=== PATIENT | male | born 1960 | race Caucasian/White ===

== ENCOUNTER 2017-02-16 15:46 | Emergency (ER) | payer OTHER ==
[~2017-02-16 15:46] MED LIST: ADDERALL20 MG PO; ALBUTEROL HFA60 DOSE IN; BENAZEPRIL HCL20 MG PO; COMBIVENT RESPIMAT IN; DEPAKOTE SPRIN125 MG PO; DIVALPROEX SOD250 MG PO; GABAPENTIN600 MG PO; LIPITOR80 MG PO; PREDNISONE20 MG PO; SEROQUEL100 MG PO; VENLAFAXINE H37.5 M1 PO
--- NOTE | 2017-02-16 16:57 | DIAGNOSTIC IMAGING REPORT ---
PROCEDURE: CT ABDOMEN/PELVIS W/O CONTRAST INDICATION: Bilateral flank pain. TECHNIQUE: Noncontrast axial images were obtained of the entire abdomen and pelvis with sagittal and coronal reformations. COMPARISON: CT abdomen/pelvis 07/17/2015. FINDINGS: ABDOMEN: Nonobstructing 4 mm right and 1 mm left renal calculi. Normal ureters. No evidence of hydronephrosis. Lung base are clear. Heart size is normal. Liver, gallbladder, pancreas, spleen and adrenal glands are normal. Moderate atherosclerosis of the aorta. Mild diverticulosis of the transverse and descending colon. PELVIS: Normal appendix. Moderate sigmoid diverticulosis. Mildly enlarged prostate (4.7 cm) with dystrophic calcifications. No pelvic mass, inflammatory changes or free fluid. Small fat filled left inguinal no suspicious osseous lesions. IMPRESSION: 1. Bilateral nonobstructing renal calculi 2. Diverticulosis 3. Enlarged prostate 4. Results discussed with Azalea Gilbert. All CT scans at this facility use dose modulation, iterative reconstruction, and/or weight-based dosing when appropriate to reduce radiation dose to as low as reasonably achievable.
--- NOTE | 2017-02-16 17:02 | ED CLINICAL REPORT ---
Clinical Report - Physicians/Mid Levels [facility] [address] [place] [address] 02/16/2017 15:47 Patient: MAYRA EMNSAH Time Seen: 16:00; initial patient contact, initial documentation, patient care assumed. Arrived- By private vehicle. Historian- patient. HISTORY OF PRESENT ILLNESS Chief Complaint: FLANK PAIN. At its maximum, severity described as severe. When seen in the E.D., severity described as moderate. Modifying factors. Not worsened by anything. Not relieved by anything. It is described as "pain". It is described as located in the right flank, the right lower quadrant and left lower quadrant and the left flank and in the lower abdomen. It is described as radiating to the abdomen. This started today and is still present. It was abrupt in onset and has been constant. The patient has had nausea. No loss of appetite, vomiting or diarrhea. No additional abdominal pain. No recent travel. Similar symptoms previously: Frequently, milder. ( feels like his kidney stones). Recent medical care: Not recently seen/assessed. REVIEW OF SYSTEMS No constipation, black stools, hematemesis, difficulty with urination or pain with urination. No urinary frequency, bloody stools, fever, chest pain or difficulty breathing. All systems otherwise negative, except as recorded above. PAST HISTORY See nurses notes. PROBLEMS: Asthma. Lipoma. Lung Disease. Bronchitis. Hypercholesterolemia. Substance Abuse. Back Pain. Hyperlipidemia. Depression. Nephrolithiasis. Hypertension. Dental Pain. Back pain . --16:01 Moose Perez R.N. ADDITIONAL SURGERIES: Knee Surgery. Shoulder Surgery. --16:01 Moose Perez R.N. SOCIAL HISTORY Smoker- current status unknown (chews). Occasional alcohol use. History of occasional drug use: marijuana. No recent travel. Is a local resident. FAMILY HISTORY Negative. ADDITIONAL NOTES The nursing notes have been reviewed with agreement regarding the chief complaint, HPI, ROS, PMH and patient medications and allergies. PHYSICAL EXAM Vital Signs: 02/16/2017 15:59 BP: 145/89. HR: 91. RR: 20. O2 saturation: 95%. Temp: 98 F. Pain level now: 5/10. Have been reviewed as normal and appear to be correct. Appearance: Alert. Oriented X3. No acute distress. Eyes: Pupils equal, round and reactive to light. Eyes normal inspection. Neck: Normal inspection. Neck supple. CVS: Normal heart rate and rhythm. Heart sounds normal. Pulses normal. Respiratory: No respiratory distress. Breath sounds normal. Chest nontender. Abdomen: Soft and nontender. Bowel sounds normal. No organomegaly. No mass. Back: Normal inspection. Skin: Skin warm and dry. Normal skin color. No rash. Normal skin turgor. Extremities: Extremities exhibit normal ROM. No lower extremity edema. Neuro: Oriented X 3. No motor deficit. No sensory deficit. LABS, X-RAYS, AND EKG Abdominal CT: . IMPRESSION: 1. Bilateral nonobstructing renal calculi 2. Diverticulosis 3. Enlarged prostate 4. Results discussed with Azalea Gilbert. All CT scans at this facility use dose modulation, iterative reconstruction, and/or weight-based dosing when appropriate to reduce radiation dose to as low as reasonably achievable. Electronically Final signed by:Hari Reid MD 02/16/2017 4:56:41 PM. The study was interpreted by the radiologist and discussed with the radiologist. Interpretation time: 16:56. Laboratory Tests: UA-Culture if indicated: (JEANIE: 02/16/2017 17:05) ( MsgRcvd 02/16/2017 17:36) Final results Test Result Flag Units (Reference) URINE COLOR STRAW URINE APPEARANCE HAZY URINE GLUCOSE NEGATIVE (NEGATIVE) URINE BILIRUBIN NEGATIVE (NEGATIVE) URINE KETONE NEGATIVE (NEGATIVE) URINE SPECIFIC GRAVITY 1.010 (1.010-1.030) URINE PH 7.0 (5.0-8.0) URINE PROTEIN NEGATIVE (NEGATIVE) URINE UROBILINOGEN 0.2 EU/dL (0.2-1.0) URINE NITRITE NEGATIVE (NEGATIVE) URINE BLOOD NEGATIVE (NEGATIVE) URINE LEUK ESTERASE NEGATIVE (NEGATIVE) URINE RBC NONE SEEN rbc/hpf (0-1) URINE WBC NONE SEEN wbc/hpf (0-1) URINE EPITHELIAL CELLS NONE SEEN EPI/hpf (0-5) URINE BACTERIA NONE SEEN (NONE SEEN) URINE COMMENT CULT NOT INDICATED URINE CULTURES ARE SET-UP BASED ON THE FOLLOWING CRITERIA:POSITIVE NITRITEPOSITIVE LEUKOCYTE ESTERASEGREATER THAN 10 WHITE BLOOD CELLSMODERATE (2+) OR GREATER BACTERIA CBC w Diff: (JEANIE: 02/16/2017 16:18) ( MsgRcvd 02/16/2017 16:27) Final results Test Result Flag Units (Reference) WHITE BLOOD COUNT 5.7 K/uL (4.5-11.5) RED BLOOD COUNT 4.83 M/uL (4.50-5.90) HEMOGLOBIN 14.3 gm/dL (13.5-17.5) HEMATOCRIT 42.0 % (41.0-53.0) MEAN CELL VOLUME 87 fL (80-100) MEAN CORPUSCULAR HGB 30 pg (26-34) MEAN CORPUSCULAR HGB CONC 34 g/dL (31-37) RED CELL DISTRIBUTION WIDTH 13.8 % (11.6-14.8) PLATELET COUNT 233 K/uL (150-400) NEUTROPHIL % 64.9 % (50-75) LYMPH % 27.6 % (25-40) MONO % 6.1 % (3-14) EOSINOPHIL % 1.1 % (0-4) BASOPHIL % 0.3 % (0-2) CMP: (JEANIE: 02/16/2017 16:18) ( MsgRcvd 02/16/2017 16:46) Final results Test Result Flag Units (Reference) GLUCOSE 101 mg/dL (70-110) BUN 13 mg/dL (7-18) CREATININE 1.0 mg/dL (0.6-1.3) Estimated GFR >60 mL/min Estimated GFR- >60 mL/min Note: Persistent reduction over 3 months in eGFR<60 mL/min/1.73 m2 defines CKD. Patients with eGFR values>=60 mL/min/1.73 m2 may also have CKD if evidence ofpersistent proteinuria. Additional information may be foundat www.kidney.org. SODIUM 139 mmol/L (136-145) POTASSIUM 4.4 mmol/L (3.5-5.1) CHLORIDE 104 mmol/L (98-107) CARBON DIOXIDE 28 mmol/L (21-32) CALCIUM 8.4 L mg/dL (8.5-10.1) TOTAL PROTEIN 6.7 g/dL (6.4-8.2) ALBUMIN 3.5 g/dL (3.3-5.0) BILIRUBIN, TOTAL 0.4 mg/dL (0.0-1.0) ALKALINE PHOSPHATASE 78 U/L (46-116) AST (SGOT) 17 U/L (15-37) ALT (SGPT) 23 U/L (12-78) LIPASE 139 U/L (73-393) AMYLASE 44 U/L (25-115) . PROGRESS AND PROCEDURES Patient counseled in person regarding the patient's stable condition, test results and diagnosis. 1700. Differential Diagnosis: I considered gastritis, peptic ulcer disease, gastroesophageal reflux disease, acute appendicitis, diverticulitis, colon cancer, ulcerative colitis, Crohn's disease, biliary colic, cholecystitis, cholelithiasis, hepatitis, pancreatitis, common bile duct obstruction, cholangitis, hernia, urinary tract infection, prostatitis, ureterolithiasis and viral syndrome as a possible cause of abdominal pain in this patient. This is a partial list of diagnoses considered. Above considerations are based on history, physical exam, reassessment, laboratory data and other information. Differential diagnosis was discussed with patient. Disposition: Discharged home in good and improved condition (17:02). Condition: good and stable. CLINICAL IMPRESSION Ureterolithiasis (multiple stones) in the right kidney and left kidney with renal colic. No hydronephrosis, acute pyelonephritis, urinary tract infection or hematuria. INSTRUCTIONS Drink plenty of fluids for the next 24 hours until better. (strain all urine). Warnings: GENERAL WARNINGS: Return or contact your physician immediately if your condition worsens or changes unexpectedly, if not improving as expected, or if other problems arise. SPECIFICALLY, return if you develop pain in the abdomen or pelvis, fever, the inability to keep fluids down, blood in vomitus, blood in diarrhea, fainting or lightheadedness. Prescription Medications: Zofran 4 mg: Take 1 orally every six hours as needed for nausea/vomiting. Dispense ten (10). No refills. Substitution is permissible. [place] 5 mg / 325 mg tablets: take 1 to 2 orally every 6 hours as needed for pain. Dispense fifteen (15). No refills. Substitution is permissible. Toradol 10 mg tablets: Take 1 tablet orally every 6 hours as needed. Dispense fifteen (15). No refills. Substitution is permissible. Flomax 0.4 mg: take 1 orally every 24 hours. Dispense fifteen (15). No refills. Substitution is permissible. Follow-up: Follow up with your doctor in about two days even if well. Call for an appointment. Summary of care provided to patient. Understanding of the discharge instructions verbalized by patient. (Electronically signed by Azalea Gilbert A.R.N.P. 02/16/2017 18:20)
--- NOTE | 2017-02-16 17:02 | ED ORDER SUMMARY ---
..... Patient: MAYRA MENSAH OrderSheet [facility] VisitID: [id number] [place] [address] 56y, M Registration Date/Time: 02/16/2017 ORDER SHEET Weight: 81.6 kg (stated) Allergies: Tape GENERAL ORDERS: CT Abd/Pel wo Cont Urgent (16:17 02/16/2017 HBivens A.R.N.P.) (Ack 16:23 PWeiler ER Tech1) (17:01 RMarsden R.N.) CBC w Diff Urgent (16:17 02/16/2017 HBivens A.R.N.P.) (16:20 JSimbeck R.N.) CMP Urgent (16:17 02/16/2017 HBivens A.R.N.P.) (16:21 JSimbeck R.N.) UA-Culture if indicated Urgent (16:17 02/16/2017 HBivens A.R.N.P.) (Ack 16:23 PWeiler ER Tech1) (17:09 RMarsden R.N.) Amylase Urgent (16:17 02/16/2017 HBivens A.R.N.P.) (16:21 JSimbeck R.N.) Lipase Urgent (16:17 02/16/2017 HBivens A.R.N.P.) (16:21 JSimbeck R.N.) MEDICATION ORDERS: IV FLUIDS: IV NS : initial bolus 1000 mL (1000 mL/hr), then none - (NOW) (16:17 02/16/2017 HBivens A.R.N.P.) (16:26 JSimbeck R.N.) Toradol IV 30 mg (NOW) (16:17 02/16/2017 HBivens A.R.N.P.) (16:27 JSimbeck R.N.) IV Saline Lock (16:17 02/16/2017 HBivens A.R.N.P.) (16:21 JSimbeck R.N.) Dilaudid IV 1 mg (HIGH ALERT MEDICATION, NOW) (17:01 02/16/2017 HBivens A.R.N.P.) (Ack 17:02 Oliver Livingston) (17:09 Oliver Munson.) ORDER SHEET NOTES: [Electronically signed by Dona Calhoun R.N. (17:02/16/2017)] [Electronically signed by Azalea Gilbert (18:20 02/16/2017)] [Electronically locked/signed by Dona Calhoun R.N. (17:02/16/2017)]
--- NOTE | 2017-02-16 17:02 | ED ORDER SUMMARY ---
..... Patient: MAYRA MENSAH OrderSheet [facility] VisitID: [id number] [place] [address] 56y, M Registration Date/Time: 02/16/2017 ORDER SHEET Weight: 81.6 kg (stated) Allergies: Tape GENERAL ORDERS: CT Abd/Pel wo Cont Urgent (16:17 02/16/2017 HBivens A.R.N.P.) (Ack 16:23 PWeiler ER Tech1) (17:01 RMarsden R.N.) CBC w Diff Urgent (16:17 02/16/2017 HBivens A.R.N.P.) (16:20 JSimbeck R.N.) CMP Urgent (16:17 02/16/2017 HBivens A.R.N.P.) (16:21 JSimbeck R.N.) UA-Culture if indicated Urgent (16:17 02/16/2017 HBivens A.R.N.P.) (Ack 16:23 PWeiler ER Tech1) (17:09 RMarsden R.N.) Amylase Urgent (16:17 02/16/2017 HBivens A.R.N.P.) (16:21 JSimbeck R.N.) Lipase Urgent (16:17 02/16/2017 HBivens A.R.N.P.) (16:21 JSimbeck R.N.) MEDICATION ORDERS: IV FLUIDS: IV NS : initial bolus 1000 mL (1000 mL/hr), then none - (NOW) (16:17 02/16/2017 HBivens A.R.N.P.) (16:26 JSimbeck R.N.) Toradol IV 30 mg (NOW) (16:17 02/16/2017 HBivens A.R.N.P.) (16:27 JSimbeck R.N.) IV Saline Lock (16:17 02/16/2017 HBivens A.R.N.P.) (16:21 JSimbeck R.N.) Dilaudid IV 1 mg (HIGH ALERT MEDICATION, NOW) (17:01 02/16/2017 HBivens A.R.N.P.) (Ack 17:02 Oliver Livingston) (17:09 Oliver Munson.) ORDER SHEET NOTES: [Electronically signed by Dona Calhoun R.N. (17:02/16/2017)] [Electronically signed by Azalea Gilbert (18:20 02/16/2017)] [Electronically locked/signed by Dona Calhoun R.N. (17:02/16/2017)]
--- NOTE | 2017-02-16 17:02 | ED NURSING NOTES ---
Clinical Report - Nurses [facility] [place] [address] 02/16/2017 15:47 Patient: MYARA MENSAH TRIAGE Triage time 15:59. Acuity: LEVEL 3. Chief Complaint: ABDOMINAL PAIN and NAUSEA and (Feels like bilat kidney stones, onset this am.). 16:08 02/16/17. ALYCIA COMA SCORE: [place] Coma Scale: 15- eyes open spontaneously (4); best verbal response- oriented x 4 (5); best motor response- obeys commands (6). --16:08 Moose Perez R.N. 15:59 02/16/17. BP: 145/89 (regular adult cuff) taken on the left arm, while lying. HR: 91. RR: 20. O2 saturation: 95% on room air. Temp: 98 F (oral). Pain level now: 10. --16:08 Moose Perez R.N. Weight: 81.6 kg stated. Height/Length: 72 inches Per Patient. BMI: 24.4. --16:03 Moose Perez R.N. Medications Adderall Oral (Tablet 20 mg) 2 tablets, daily. Albuterol Sulfate HFA Inhalation. Atorvastatin Calcium Oral (Tablet 80 mg) 1 tablet, daily. Gabapentin Oral (Tablet 600 mg) 2 tablets, at bedtime as needed. SEROquel Oral (Tablet 300 mg) 1 tablet, daily. Venlafaxine HCl ER Oral (Tablet Extended Release 24 Hour 150 mg) 170 mg , daily. --16:01 Moose Perez R.N. Allergies Tape. --16:01 Moose Perez R.N. History Arrived by private vehicle. Historian: patient. The patient has had sharp, burning, constant abdominal pain (radiates from bilat flanks into lower abd). The pain is described as located in the lower abdomen. No constipation or fever. 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 SOCIAL HX: Smoker- current status unknown (chewing tobaco). Occasional alcohol use. History of drug use: marijuana. (3 times a day). ABUSE ASSESSMENT: No report of abuse. --16:08 Moose Perez R.N. PROBLEMS: Asthma. Lipoma. Lung Disease. Bronchitis. Hypercholesterolemia. Substance Abuse. Back Pain. Hyperlipidemia. Depression. Nephrolithiasis. Hypertension. Dental Pain. Back pain . --16:01 Moose Perez R.N. ADDITIONAL SURGERIES: Knee Surgery. Shoulder Surgery. --16:01 Moose Perez R.N. Interventions ID band on patient. To treatment room. --16:08 Moose Perez R.N. PHYSICAL ASSESSMENT 16:10 02/16/17. Ambulatory to room. GENERAL / NEURO / PSYCH: Alert. Oriented X 4. Appears in pain. HEENT: Mucous membranes are pink. RESPIRATORY: Respirations not labored. Breath sounds within normal limits. CVS: Capillary refill less than 2 seconds. GI / : Abdomen soft. Abdominal tenderness in the right lower quadrant and left lower quadrant (also bilat flank pain). Bowel sounds within normal limits. SKIN: Skin is warm and dry. --16:11 Moose Perez R.N. NURSING PROGRESS NOTES 16:09 02/16/17. Patient gowned. Head of bed elevated. Reassurance given. Two patient identifiers checked. Call light placed in reach. Bed placed in lowest position. Brakes of bed on. Patient ready for evaluation- chart flagged. --16:09 Moose Perez R.N. 16:18 02/16/2017 Site #1 started via IV in the left antecubital space with an 20g angiocath; one attempt. Blood drawn: rainbow set. Labeled in the presence of the patient and sent to the lab. Saline lock flushed with 10 mL saline. --16:21 Moose Perez R.N. 16:24 02/16/2017 Started bag #1 1000 mL IV Fluids IV NS (Saline); bolus of 1000 mL over 1 hour(s) via site #1. Allergies verified and confirmed 5 rights. IV patency established. IV site checked: no pain, redness, or swelling. IV flushed thoroughly pre- and post-medication administration. --16:26 Moose Perez R.N. 16:24 02/16/2017 Toradol IVP 30 mg given over 1 minute(s) via site #1. Allergies verified and confirmed 5 rights. IV patency established. IV site checked: no pain, redness, or swelling. IV flushed thoroughly pre- and post-medication administration. IVP given by RN. --16:27 Moose Perez R.N. 17:05 02/16/2017 Dilaudid (HYDROmorphone HCl PF) IVP 1 mg given over 2 minute(s) via site #1. Sedative warning given to the patient. IV patency established. IV site checked: no pain, redness, or swelling. IV flushed thoroughly pre- and post-medication administration. IVP given by RN. --17:09 Dona Calhoun R.N. DISPOSITION / DISCHARGE 17:11 02/16/17. --17:11 Dona Calhoun R.N. 17:09 02/16/17. BP: 153/101. HR: 84. RR: 16. O2 saturation: 97%. Temp: 98.1 F. Pain level now: 05/29. --17:11 Dona Calhoun R.N. 17:21 02/16/17. No learning barriers present. Discharge instructions provided and reviewed with the patient. Reviewed warnings. Reviewed medication(s). Treatments reviewed. Reviewed diet. Patient verbalized understanding. Written instructions provided in Faroese. The patient was discharged by the nurse practitioner. He was discharged home and accompanied by consulting application engineer. He left the Emergency Department ambulatory and via private vehicle. Sheet Metal Journeyman driving. --17:21 Dona Calhoun R.N. Locked/Released at 02/16/2017 17:27 by Dona Calhoun R.N.
--- NOTE | 2017-02-16 17:02 | ED NURSING NOTES ---
Clinical Report - Nurses [facility] [address] [address] 02/16/2017 15:47 Patient: MAYRA MENSAH TRIAGE Triage time 15:59. Acuity: LEVEL 3. Chief Complaint: ABDOMINAL PAIN and NAUSEA and (Feels like bilat kidney stones, onset this am.). 16:08 02/16/17. ALYCIA COMA SCORE: [place] Coma Scale: 15- eyes open spontaneously (4); best verbal response- oriented x 4 (5); best motor response- obeys commands (6). --16:08 Moose Perez R.N. 15:59 02/16/17. BP: 145/89 (regular adult cuff) taken on the left arm, while lying. HR: 91. RR: 20. O2 saturation: 95% on room air. Temp: 98 F (oral). Pain level now: 10. --16:08 Moose Perez R.N. Weight: 81.6 kg stated. Height/Length: 72 inches Per Patient. BMI: 24.4. --16:03 Moose Perez R.N. Medications Adderall Oral (Tablet 20 mg) 2 tablets, daily. Albuterol Sulfate HFA Inhalation. Atorvastatin Calcium Oral (Tablet 80 mg) 1 tablet, daily. Gabapentin Oral (Tablet 600 mg) 2 tablets, at bedtime as needed. SEROquel Oral (Tablet 300 mg) 1 tablet, daily. Venlafaxine HCl ER Oral (Tablet Extended Release 24 Hour 150 mg) 170 mg , daily. --16:01 Moose Perez R.N. Allergies Tape. --16:01 Moose Perez R.N. History Arrived by private vehicle. Historian: patient. The patient has had sharp, burning, constant abdominal pain (radiates from bilat flanks into lower abd). The pain is described as located in the lower abdomen. No constipation or fever. 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 SOCIAL HX: Smoker- current status unknown (chewing tobaco). Occasional alcohol use. History of drug use: marijuana. (3 times a day). ABUSE ASSESSMENT: No report of abuse. --16:08 Moose Perez R.N. PROBLEMS: Asthma. Lipoma. Lung Disease. Bronchitis. Hypercholesterolemia. Substance Abuse. Back Pain. Hyperlipidemia. Depression. Nephrolithiasis. Hypertension. Dental Pain. Back pain . --16:01 Moose Perez R.N. ADDITIONAL SURGERIES: Knee Surgery. Shoulder Surgery. --16:01 Moose Perez R.N. Interventions ID band on patient. To treatment room. --16:08 Moose Perez R.N. PHYSICAL ASSESSMENT 16:10 02/16/17. Ambulatory to room. GENERAL / NEURO / PSYCH: Alert. Oriented X 4. Appears in pain. HEENT: Mucous membranes are pink. RESPIRATORY: Respirations not labored. Breath sounds within normal limits. CVS: Capillary refill less than 2 seconds. GI / : Abdomen soft. Abdominal tenderness in the right lower quadrant and left lower quadrant (also bilat flank pain). Bowel sounds within normal limits. SKIN: Skin is warm and dry. --16:11 Moose Perez R.N. NURSING PROGRESS NOTES 16:09 02/16/17. Patient gowned. Head of bed elevated. Reassurance given. Two patient identifiers checked. Call light placed in reach. Bed placed in lowest position. Brakes of bed on. Patient ready for evaluation- chart flagged. --16:09 Moose Perez R.N. 16:18 02/16/2017 Site #1 started via IV in the left antecubital space with an 20g angiocath; one attempt. Blood drawn: rainbow set. Labeled in the presence of the patient and sent to the lab. Saline lock flushed with 10 mL saline. --16:21 Moose Perez R.N. 16:24 02/16/2017 Started bag #1 1000 mL IV Fluids IV NS (Saline); bolus of 1000 mL over 1 hour(s) via site #1. Allergies verified and confirmed 5 rights. IV patency established. IV site checked: no pain, redness, or swelling. IV flushed thoroughly pre- and post-medication administration. --16:26 Moose Perez R.N. 16:24 02/16/2017 Toradol IVP 30 mg given over 1 minute(s) via site #1. Allergies verified and confirmed 5 rights. IV patency established. IV site checked: no pain, redness, or swelling. IV flushed thoroughly pre- and post-medication administration. IVP given by RN. --16:27 Moose Perez R.N. 17:05 02/16/2017 Dilaudid (HYDROmorphone HCl PF) IVP 1 mg given over 2 minute(s) via site #1. Sedative warning given to the patient. IV patency established. IV site checked: no pain, redness, or swelling. IV flushed thoroughly pre- and post-medication administration. IVP given by RN. --17:09 Dona Calhoun R.N. DISPOSITION / DISCHARGE 17:11 02/16/17. --17:11 Dona Calhoun R.N. 17:09 02/16/17. BP: 153/101. HR: 84. RR: 16. O2 saturation: 97%. Temp: 98.1 F. Pain level now: 05/29. --17:11 Dona Calhoun R.N. 17:21 02/16/17. No learning barriers present. Discharge instructions provided and reviewed with the patient. Reviewed warnings. Reviewed medication(s). Treatments reviewed. Reviewed diet. Patient verbalized understanding. Written instructions provided in Cambodian. The patient was discharged by the nurse practitioner. He was discharged home and accompanied by flame burner. He left the Emergency Department ambulatory and via private vehicle. Exhibit Designer driving. --17:21 Dona Calhoun R.N. Locked/Released at 02/16/2017 17:27 by Dona Calhoun R.N.
--- NOTE | 2017-02-16 18:21 | ED MAR SUMMARY ---
..... Medication Administration Record [facility] [address] [place] [address] Patient: MAYRA MENSAH Visit ID: [id number] 56y, M Weight: 81.6 kg Height/Length: 72 in BMI: 24.4 ALLERGIES: Tape Start 16:24 02/16/2017 Moose Perez R.N. Medication Administered: IV NS (SALINE), Dose: IV Fluids, Bolus: 1000 mL over 1 hour(s), Dispensed: 1000 mL bag, Site: #1 left AC. Medication Ordered: IV NS : initial bolus 1000 mL (1000 mL/hr), then none - (NOW). Given 16:02/16/2017 Moose Perez R.N. Medication Administered: TORADOL [IVP], Dose: 30 mg IVP over 1 minute(s), Site: #1 left AC. Medication Ordered: Toradol IV 30 mg (NOW). Given 17:05 02/16/2017 Dona Calhoun R.N. Medication Administered: DILAUDID [IVP] (HYDROMORPHONE HCL PF), Dose: 1 mg IVP over 2 minute(s), Site: #1 left AC. Medication Ordered: Dilaudid IV 1 mg (HIGH ALERT MEDICATION, NOW).
--- NOTE | 2017-02-16 18:21 | ED MED RECONCILIATION SUMMARY ---
Patient: MAYRA MENSAH Medication Reconciliation Report [facility] VisitID: [id number] [place] [address] 56y, M Registration Date/Time: 02/16/2017 Weight: 81.6 kg Height/Length: 72 in. BMI: 24.4 ALLERGIES: Tape The patient's Home Medications are listed below: THE FOLLOWING MEDICATIONS NEED TO BE RECONCILED: Adderall Oral (20 mg) 2 tablets, daily Albuterol Sulfate HFA Inhalation Atorvastatin Calcium Oral (80 mg) 1 tablet, daily Gabapentin Oral (600 mg) 2 tablets, at bedtime SEROquel Oral (300 mg) 1 tablet, daily Venlafaxine HCl ER Oral (150 mg) 170 mg , daily The source(s) of the original Home Medication information: Not obtained. The following Medications were given to the patient in the Emergency Department: IV NS IV Fluids bolus 1000 mL over 1 hour(s), administered: 02/16/2017 4:24:00 PM Toradol [IVP] IVP 30 mg, administered: 02/16/2017 4:24:00 PM Dilaudid [IVP] IVP 1 mg, administered: 02/16/2017 5:05:00 PM The following Medications were prescribed to the patient: Zofran 4 mg: Take 1 orally every six hours as needed for nausea/vomiting. Dispense ten (10). No refills. Substitution is permissible. -- Azalea Gilbert, A.R.N.P. [place] 5 mg / 325 mg tablets: take 1 to 2 orally every 6 hours as needed for pain. Dispense fifteen (15). No refills. Substitution is permissible. -- Azalea Gilbert, A.R.N.P. Toradol 10 mg tablets: Take 1 tablet orally every 6 hours as needed. Dispense fifteen (15). No refills. Substitution is permissible. -- Azalea Gilbert, A.R.N.P. Flomax 0.4 mg: take 1 orally every 24 hours. Dispense fifteen (15). No refills. Substitution is permissible. -- Azalea Gilbert, A.R.N.P.
--- NOTE | 2017-02-16 18:21 | ED MAR SUMMARY ---
..... Medication Administration Record [facility] [address] [place] [place] [address] Patient: MAYRA MENSAH Visit ID: [id number] 56y, M Weight: 81.6 kg Height/Length: 72 in BMI: 24.4 ALLERGIES: Tape Start 16:24 02/16/2017 Moose Perez R.N. Medication Administered: IV NS (SALINE), Dose: IV Fluids, Bolus: 1000 mL over 1 hour(s), Dispensed: 1000 mL bag, Site: #1 left AC. Medication Ordered: IV NS : initial bolus 1000 mL (1000 mL/hr), then none - (NOW). Given 16:02/16/2017 Moose Perez R.N. Medication Administered: TORADOL [IVP], Dose: 30 mg IVP over 1 minute(s), Site: #1 left AC. Medication Ordered: Toradol IV 30 mg (NOW). Given 17:05 02/16/2017 Dona Calhoun R.N. Medication Administered: DILAUDID [IVP] (HYDROMORPHONE HCL PF), Dose: 1 mg IVP over 2 minute(s), Site: #1 left AC. Medication Ordered: Dilaudid IV 1 mg (HIGH ALERT MEDICATION, NOW).
--- NOTE | 2017-02-16 18:21 | ED MED RECONCILIATION SUMMARY ---
Patient: MAYRA MENSAH Medication Reconciliation Report [facility] VisitID: [id number] [place] [address] 56y, M Registration Date/Time: 02/16/2017 Weight: 81.6 kg Height/Length: 72 in. BMI: 24.4 ALLERGIES: Tape The patient's Home Medications are listed below: THE FOLLOWING MEDICATIONS NEED TO BE RECONCILED: Adderall Oral (20 mg) 2 tablets, daily Albuterol Sulfate HFA Inhalation Atorvastatin Calcium Oral (80 mg) 1 tablet, daily Gabapentin Oral (600 mg) 2 tablets, at bedtime SEROquel Oral (300 mg) 1 tablet, daily Venlafaxine HCl ER Oral (150 mg) 170 mg , daily The source(s) of the original Home Medication information: Not obtained. The following Medications were given to the patient in the Emergency Department: IV NS IV Fluids bolus 1000 mL over 1 hour(s), administered: 02/16/2017 4:24:00 PM Toradol [IVP] IVP 30 mg, administered: 02/16/2017 4:24:00 PM Dilaudid [IVP] IVP 1 mg, administered: 02/16/2017 5:05:00 PM The following Medications were prescribed to the patient: Zofran 4 mg: Take 1 orally every six hours as needed for nausea/vomiting. Dispense ten (10). No refills. Substitution is permissible. -- Azalea Gilbert, A.R.N.P. [place] 5 mg / 325 mg tablets: take 1 to 2 orally every 6 hours as needed for pain. Dispense fifteen (15). No refills. Substitution is permissible. -- Azalea Gilbert, A.R.N.P. Toradol 10 mg tablets: Take 1 tablet orally every 6 hours as needed. Dispense fifteen (15). No refills. Substitution is permissible. -- Azalea Gilbert, A.R.N.P. Flomax 0.4 mg: take 1 orally every 24 hours. Dispense fifteen (15). No refills. Substitution is permissible. -- Azalea Gilbert, A.R.N.P.
--- NOTE | 2017-02-16 18:21 | ED DISCHARGE INSTRUCTIONS ---
Patient: MAYRA MENSAH General Instructions [facility] VisitID: [id number] [place] [address] 56y, M Registration Date/Time: 02/16/2017 Ureterolithiasis (multiple stones) in the right kidney and left kidney with renal colic. No hydronephrosis, acute pyelonephritis, urinary tract infection or hematuria. INSTRUCTIONS Drink plenty of fluids for the next 24 hours until better. (strain all urine). Warnings: GENERAL WARNINGS: Return or contact your physician immediately if your condition worsens or changes unexpectedly, if not improving as expected, or if other problems arise. SPECIFICALLY, return if you develop pain in the abdomen or pelvis, fever, the inability to keep fluids down, blood in vomitus, blood in diarrhea, fainting or lightheadedness. Prescription Medications: Zofran 4 mg: Take 1 orally every six hours as needed for nausea/vomiting. Dispense ten (10). No refills. Substitution is permissible. [place] 5 mg / 325 mg tablets: take 1 to 2 orally every 6 hours as needed for pain. Dispense fifteen (15). No refills. Substitution is permissible. Toradol 10 mg tablets: Take 1 tablet orally every 6 hours as needed. Dispense fifteen (15). No refills. Substitution is permissible. Flomax 0.4 mg: take 1 orally every 24 hours. Dispense fifteen (15). No refills. Substitution is permissible. Follow-up: Follow up with your doctor in about two days even if well. Call for an appointment. Summary of care provided to patient. Understanding of the discharge instructions verbalized by patient. ADDITIONAL INFORMATION Kidney Stone (W/ Colic) The sharp cramping pain and nausea/vomiting that you have is due to a small stone which has formed in the kidney and is now passing down a narrow tube (ureter) on its way to your bladder. Once it reaches your bladder, the pain will stop. The stone may pass in your urine stream in one piece. [The size may be 1/16" to 1/4" (1-6mm)]. Or, the stone may also break up into xin fragments which you may not even notice. Once you have had a kidney stone, you are at risk for developing another one in the future. Home Care: Drink plenty of fluids (at least 8 to 10 glasses of water a day). Most stones will pass on their own, but may take from a few hours to a few days. Sometimes the stone is too large to pass by itself and special methods will have to be used to remove the stone. Each time you urinate, do so in a jar. Pour the urine from the jar through the strainer and into the toilet. Continue doing this until 24 hours after your pain stops. By then, if there was a kidney stone, it should pass from your bladder. Some stones dissolve into sand-like particles and pass right through the strainer. In that case, you wont ever see a stone. Save any stone that you find in the strainer and bring it to your doctor for analysis. It may be possible to prevent certain types of stones from forming. Therefore, it is important to know what kind of stone you have. Try to stay as active as possible since this will help the stone pass. Do not stay in bed unless your pain prevents you from getting up. You may notice a red, pink or brown color to your urine. This is normal while passing a kidney stone. Follow Up with your doctor or return to this facility if the pain lasts more than 48 hours. Get Prompt Medical Attention if any of the following occur: Pain that is not controlled by the medicine given Repeated vomiting or unable to keep down fluids Weakness, dizziness or fainting Fever of 100.4F (38C) or higher, or as directed by your healthcare provider Passage of solid red or brown urine (can't see through it) or urine with lots of blood clots Unable to pass urine for 8 hours and increasing bladder pressure Ondansetron Oral disintegrating tablet What is this medicine? ONDANSETRON (on JANINE se lenore) is used to treat nausea and vomiting caused by chemotherapy. It is also used to prevent or treat nausea and vomiting after surgery. How should I use this medicine? These tablets are made to dissolve in the mouth. Do not try to push the tablet through the foil backing. With dry hands, peel away the foil backing and gently remove the tablet. Place the tablet in the mouth and allow it to dissolve, then swallow. While you may take these tablets with water, it is not necessary to do so. Talk to your hoop punch operator helper regarding the use of this medicine in children. Special care may be needed. What side effects may I notice from receiving this medicine? Side effects that you should report to your doctor or health acute care occupational therapist as soon as possible: allergic reactions like skin rash, itching or hives, swelling of the face, lips, or tongue breathing problems dizziness fast or irregular heartbeat feeling faint or lightheaded, falls fever and chills swelling of the hands and feet tightness in the chest Side effects that usually do not require medical attention (report to your doctor or health acute care occupational therapist if they continue or are bothersome): constipation or diarrhea headache What may interact with this medicine? Do not take this medicine with any of the following medications: -apomorphine -cisapride -dofetilide -dronedarone -pimozide -thioridazine -ziprasidone This medicine may also interact with the following medications: -carbamazepine -phenytoin -rifampicin -tramadol -other medicines that prolong the QT interval (cause an abnormal heart rhythm) What if I miss a dose? If you miss a dose, take it as soon as you can. If it is almost time for your next dose, take only that dose. Do not take double or extra doses. Where should I keep my medicine? Keep out of the reach of children. Store between 2 and 30 degrees C (36 and 86 degrees F). Throw away any unused medicine after the expiration date. What should I tell my health care provider before I take this medicine? They need to know if you have any of these conditions: heart disease history of irregular heartbeat liver disease low levels of magnesium or potassium in the blood an unusual or allergic reaction to ondansetron, granisetron, other medicines, foods, dyes, or preservatives or trying to get breast-feeding What should I watch for while using this medicine? Check with your doctor or health acute care occupational therapist as soon as you can if you have any sign of an allergic reaction. Hydrocodone Bitartrate, Acetaminophen Oral tablet What is this medicine? ACETAMINOPHEN; HYDROCODONE (a set a JERAMIE srini fen; joellen droe KOE done) is a pain reliever. It is used to treat mild to moderate pain. How should I use this medicine? Take this medicine by mouth. Swallow it with a full glass of water. Follow the directions on the prescription label. If the medicine upsets your stomach, take the medicine with food or milk. Do not take more than you are told to take. Talk to your hoop punch operator helper regarding the use of this medicine in children. This medicine is not approved for use in children. What side effects may I notice from receiving this medicine? Side effects that you should report to your doctor or health acute care occupational therapist as soon as possible: allergic reactions like skin rash, itching or hives, swelling of the face, lips, or tongue breathing problems confusion feeling faint or lightheaded, falls stomach pain yellowing of the eyes or skin Side effects that usually do not require medical attention (report to your doctor or health acute care occupational therapist if they continue or are bothersome): nausea, vomiting stomach upset What may interact with this medicine? alcohol antihistamines isoniazid medicines for depression, anxiety, or psychotic disturbances medicines for sleep muscle relaxants naltrexone narcotic medicines (opiates) for pain phenobarbital ritonavir tramadol What if I miss a dose? If you miss a dose, take it as soon as you can. If it is almost time for your next dose, take only that dose. Do not take double or extra doses. Where should I keep my medicine? Keep out of the reach of children. This medicine can be abused. Keep your medicine in a safe place to protect it from theft. Do not share this medicine with anyone. Selling or giving away this medicine is dangerous and against the law. Store at room temperature between 15 and 30 degrees C (59 and 86 degrees F). Protect from light. Keep container tightly closed. Throw away any unused medicine after the expiration date. Discard unused medicine and used packaging carefully. Pets and children can be harmed if they find used or lost packages. What should I tell my health care provider before I take this medicine? They need to know if you have any of these conditions: brain tumor Crohn's disease, inflammatory bowel disease, or ulcerative colitis drink more than 3 alcohol-containing drinks per day drug abuse or addiction head injury heart or circulation problems kidney disease or problems going to the bathroom liver disease lung disease, asthma, or breathing problems an unusual or allergic reaction to acetaminophen, hydrocodone, other opioid analgesics, other medicines, foods, dyes, or preservatives or trying to get breast-feeding What should I watch for while using this medicine? Tell your doctor or health acute care occupational therapist if your pain does not go away, if it gets worse, or if you have new or a different type of pain. You may develop tolerance to the medicine. Tolerance means that you will need a higher dose of the medicine for pain relief. Tolerance is normal and is expected if you take the medicine for a long time. Do not suddenly stop taking your medicine because you may develop a severe reaction. Your body becomes used to the medicine. This does NOT mean you are addicted. Addiction is a behavior related to getting and using a drug for a non-medical reason. If you have pain, you have a medical reason to take pain medicine. Your doctor will tell you how much medicine to take. If your doctor wants you to stop the medicine, the dose will be slowly lowered over time to avoid any side effects. You may get drowsy or dizzy when you first start taking the medicine or change doses. Do not drive, use machinery, or do anything that may be dangerous until you know how the medicine affects you. Stand or sit up slowly. There are different types of narcotic medicines (opiates) for pain. If you take more than one type at the same time, you may have more side effects. Give your health care provider a list of all medicines you use. Your doctor will tell you how much medicine to take. Do not take more medicine than directed. Call emergency for help if you have problems breathing. The medicine will cause constipation. Try to have a bowel movement at least every 2 to 3 days. If you do not have a bowel movement for 3 days, call your doctor or health acute care occupational therapist. Too much acetaminophen can be very dangerous. Do not take Tylenol (acetaminophen) or medicines that contain acetaminophen with this medicine. Many non-prescription medicines contain acetaminophen. Always read the labels carefully. Ketorolac Tromethamine Oral tablet What is this medicine? KETOROLAC (christina toe ROLE ak) is a non-steroidal anti-inflammatory drug (NSAID). It is used for a short while to treat moderate to severe pain, including pain after surgery. It should not be used for more than 5 days. How should I use this medicine? Take this medicine by mouth with a full glass of water. Follow the directions on the prescription label. Take your medicine at regular intervals. Do not take your medicine more often than directed. Do not take more than the recommended dose. A special MedGuide will be given to you by the pharmacist with each prescription and refill. Be sure to read this information carefully each time. Talk to your hoop punch operator helper regarding the use of this medicine in children. While this drug may be prescribed for children as young as 16 years of age for selected conditions, precautions do apply. Patients over 65 years old may have a stronger reaction and need a smaller dose. What side effects may I notice from receiving this medicine? Side effects that you should report to your doctor or health acute care occupational therapist as soon as possible: allergic reactions like skin rash, itching or hives, swelling of the face, lips, or tongue black or tarry stools breathing problems changes in vision chest pain high blood pressure nausea or vomiting redness, blistering, peeling or loosening of the skin, including inside the mouth severe abdominal pain slurred speech or weakness on one side of the body unexplained weight gain or swelling unusual bleeding or bruising unusually weak or tired yellowing of eyes or skin Side effects that usually do not require medical attention (report to your doctor or health acute care occupational therapist if they continue or are bothersome): diarrhea dizziness headache heartburn What may interact with this medicine? Do not take this medicine with any of the following medications: aspirin and aspirin-like medicines cidofovir methotrexate NSAIDs, medicines for pain and inflammation, like ibuprofen or naproxen pemetrexed probenecid This medicine may also interact with the following medications: alcohol alendronate alprazolam carbamazepine cyclosporine diuretics flavocoxid fluoxetine ginkgo lithium medicines for high blood pressure like enalapril medicines that affect platelets like pentoxifylline medicines that treat or prevent blood clots like heparin, warfarin muscle relaxants phenytoin steroid medicines like prednisone or cortisone thiothixene What if I miss a dose? If you miss a dose, take it as soon as you can. If it is almost time for your next dose, take only that dose. Do not take double or extra doses. Where should I keep my medicine? Keep out of the reach of children. Store at room temperature between 20 and 25 degrees C (68 and 77 degrees F). Throw away any unused medicine after the expiration date. What should I tell my health care provider before I take this medicine? They need to know if you have any of these conditions: asthma bleeding problems like hemophilia cigarette smoker drink more than 3 alcohol containing drinks a day heart disease or circulation problems such as heart failure or leg edema (fluid retention) high blood pressure kidney disease liver disease stomach bleeding or ulcers an unusual or allergic reaction to ketorolac, aspirin, other NSAIDs, other medicines, foods, dyes, or preservatives or trying to get breast-feeding What should I watch for while using this medicine? Tell your doctor or health acute care occupational therapist if your pain does not get better. Talk to your doctor before taking another medicine for pain. Do not treat yourself. This medicine does not prevent heart attack or stroke. In fact, this medicine may increase the chance of a heart attack or stroke. The chance may increase with longer use of this medicine and in people who have heart disease. If you take aspirin to prevent heart attack or stroke, talk with your doctor or health acute care occupational therapist. Do not take medicines such as ibuprofen and naproxen with this medicine. Side effects such as stomach upset, nausea, or ulcers may be more likely to occur. Many medicines available without a prescription should not be taken with this medicine. This medicine can cause ulcers and bleeding in the stomach and intestines at any time during treatment. Do not smoke cigarettes or drink alcohol. These increase irritation to your stomach and can make it more susceptible to damage from this medicine. Ulcers and bleeding can happen without warning symptoms and can cause . You may get drowsy or dizzy. Do not drive, use machinery, or do anything that needs mental alertness until you know how this medicine affects you. Do not stand or sit up quickly, especially if you are an older patient. This reduces the risk of dizzy or fainting spells. This medicine can cause you to bleed more easily. Try to avoid damage to your teeth and gums when you brush or floss your teeth. You have been given the following additional information: Kidney Stone W/ Colic Ondansetron Oral disintegrating tablet Hydrocodone Bitartrate, Acetaminophen Oral tablet Ketorolac Tromethamine Oral tablet (Electronically signed by Azalea Gilbert A.R.N.P. 02/16/2017 18:20)
== END 2017-02-16 17:21 | disposition home or self-care (01) ==
LOC: ED SRH 15:46
DX: N20.2 Calculus of kidney with calculus of ureter (principal); I10 Essential (primary) hypertension; J45.909 Unspecified asthma, uncomplicated; F17.229 Nicotine dependence, chewing tobacco, with unspecified nicotine-induced disorders; Z79.899 Other long term (current) drug therapy; Z91.09 Other allergy status, other than to drugs and biological substances
CPT/HCPCS: 90004; 90100; 92235; 92530; 95059

== ENCOUNTER 2017-02-19 16:10 | Emergency (ER) | payer OTHER ==
--- NOTE | 2017-02-19 17:12 | ED ORDER SUMMARY ---
..... Patient: MAYRA MENSAH OrderSheet [facility] VisitID: [id number] [place] [address] 56y, M Registration Date/Time: 02/19/2017 ORDER SHEET Weight: 81.6 kg (stated) Allergies: Tape, No Known Drug Allergy GENERAL ORDERS: UA-Culture if indicated Urgent (16:34 02/19/2017 DDean R.N. per protocol) ([facility] 16:36 Mica) (16:49 DDean R.N.) MEDICATION ORDERS: Hydrocodone-APAP PO 10/650 mg (NOW, HIGH ALERT MEDICATION) (17:00 02/19/2017 Eri Dennis) (19:14 DDean R.N.) IV FLUIDS: ORDER SHEET NOTES: [Electronically signed by Nohemi Mcqueen P.A.-C (17:33 02/19/2017)] [Electronically signed by Jazmin Sahni R.N. (19:15 02/19/2017)] [Electronically locked/signed by Jazmin Sahni R.N. (19:15 02/19/2017)]
--- NOTE | 2017-02-19 17:12 | ED NURSING NOTES ---
Clinical Report - Nurses [facility] [address] [place] [address] 02/19/2017 16:11 Patient: MAYRA MENSAH TRIAGE Triage time 1615. Acuity: LEVEL 4. Chief Complaint: (Pt was igor 3 days ago and dx with 7 kidney stones. pt states he is still having pain on left side and ran out of meds at noon (only taking vicodin, tordol made him severely nauseated, dispite zofran tablets)). 16:15. --16:26 Jazmin Sahni R.N. 16:15 02/19/17. BP: 173/91. HR: 97. RR: 18. O2 saturation: 97%. Temp: 98.2 F. Pain level now: 04/28. --16:26 Jazmin Sahni R.N. Weight: 81.6 kg stated. Height/Length: 72 inches Per Patient. BMI: 24.4. --16:24 Jazmin Sahni R.N. Medications Albuterol Sulfate HFA Inhalation. Atorvastatin Calcium Oral (Tablet 80 mg) 1 tablet, daily. Gabapentin Oral (Tablet 600 mg) 2 tablets, at bedtime as needed. SEROquel Oral (Tablet 300 mg) 1 tablet, daily. Venlafaxine HCl ER Oral (Tablet Extended Release 24 Hour 150 mg) 170 mg , daily. --16:20 Jazmin Sahni R.N. Vicodin 2 tabs every 4 hours- last dose 12 noon . --16:20 Jazmin Sahni R.N. Flomax Oral 0.4 mg, daily. --16:20 Jazmin Sahni R.N. Zofran 4mg ODT prn - only has 2 or 3 left . --16:21 Jazmin Sahni R.N. Tordol 10mg po- not taking due to nausea . --16:21 Jazmin Sahni R.N. The following entry was struck and corrected by Jazmin Sahni R.N., 16:22 (02/19/17) Reason for correction - other(correction). <<STRICKEN ENTRY-- Flomax Oral. --16:20 Jazmin Sahni R.N. --END STRIKE>>. Allergies Tape. --16:20 Jazmin Sahni R.N. No Known Drug Allergy. --16:23 Jazmin Sahni R.N. History Arrived by private vehicle. Historian: patient. Accompanied by (dropped off). ( right side "doesnt hurt anymore...I think I passed those stones....making progress"). SOCIAL HX: Former smoker (quit smoking 10 years ago, does chews 1 can a week). Occasional alcohol use. History of drug use: marijuana. --16:26 Jazmin Sahni R.N. PROBLEMS: MRSA Infection. Pneumonia. Ureterolithiasis. Asthma. Lipoma. Lung Disease. Bronchitis. Hypercholesterolemia. Substance Abuse. Hyperlipidemia. Depression. Nephrolithiasis. Hypertension. --16:23 Jazmin Sahni R.N. ADDITIONAL SURGERIES: Knee Surgery. Shoulder Surgery. --16:23 Jazmin Sahni R.N. Interventions ID band on patient. To treatment room. --16:26 Jazmin Sahni R.N. PHYSICAL ASSESSMENT 16:15. Ambulatory to room. Patient gowned. GENERAL / NEURO / PSYCH: Alert. Oriented X 4. Appears in pain. RESPIRATORY: Respirations not labored. CVS: Capillary refill less than 2 seconds. SKIN: Skin is warm and dry. --16:27 Jazmin Sahni R.N. NURSING PROGRESS NOTES 16:15. Patient gowned. Head of bed elevated. Reassurance given. Patient identifiers checked. Call light placed in reach. Side rails up. Bed placed in lowest position. Patient ready for evaluation- chart flagged. --16:26 Jazmin Sahni R.N. 16:30. Patient ID band checked for patient name and birthdate urine collected with return of yellow-colored clear urine; sample sent to lab for urinalysis and culture. Specimen labeled in the presence of the patient. --16:59 Jazmin Sanhi R.N. 17:14 02/19/2017 Hydrocodone-APAP (Hydrocodone-Acetaminophen) PO 5/325 mg Tablets 2 tab given. Allergies verified, confirmed 5 rights and sedative warning given to the patient. --19:14 Jazmin Sahni R.N. DISPOSITION / DISCHARGE 17:25. Condition at departure: stable. No learning barriers present. Discharge instructions provided and reviewed with the patient. Reviewed medication(s) (vicodin). Patient verbalized understanding. Written instructions provided in Albanian. The patient was discharged home and accompanied by chief of field operations. He left the Emergency Department ambulatory and via private vehicle. Deputy Of Counter Intelligence driving. --19:13 Jazmin Sahni R.N. 17:25 02/19/17. BP: 170/82. HR: 88. RR: 20. O2 saturation: 99%. Temp: deferred. Pain level now: 810. --19:13 Jazmin Sahni R.N. Locked/Released at 02/19/2017 19:15 by Jazmin Sahni R.N.
--- NOTE | 2017-02-19 17:12 | ED CLINICAL REPORT ---
Clinical Report - Physicians/Mid Levels [facility] [address] [place] [address] 02/19/2017 16:11 [id number] Time Seen: 16:57 Feb 19 2017. Arrived- By private vehicle. Historian- patient. HISTORY OF PRESENT ILLNESS Chief Complaint: FLANK PAIN. It is described as "pain" and it is described as located in the left flank. This started just prior to arrival and is still present. (Patient reports history of nephrolithiasis was recently seen here, not of medications. Denies any further right abdominal or flank pain. Reports only left flank pain. Pain is not exacerbated by any movement. Denies any urgency or frequency. Similar to what he had in the past. Patient does not have a urologist. Denies any new trauma. Denies any dysuria, urgency or frequency.). REVIEW OF SYSTEMS No constipation, hematemesis, difficulty with urination, chest pain or difficulty breathing. All systems otherwise negative, except as recorded above. PAST HISTORY Problems: MRSA Infection. Pneumonia. Ureterolithiasis. Asthma. Lipoma. Lung Disease. Bronchitis. Hypercholesterolemia. Substance Abuse. Back Pain. Hyperlipidemia. Depression. Nephrolithiasis. Hypertension. Dental Pain. Immunizations. Back pain . Htn. Ureterolithiasis [RuleOut]. Additional Surgeries: Knee Surgery. Shoulder Surgery. Medications: Tordol 10mg po- not taking due to nausea . Zofran 4mg ODT prn - only has 2 or 3 left . Flomax Oral 0.4 mg, daily. Vicodin 2 tabs every 4 hours- last dose 12 noon . Albuterol Sulfate HFA Inhalation. Atorvastatin Calcium Oral (Tablet 80 mg) 1 tablet, daily. Gabapentin Oral (Tablet 600 mg) 2 tablets, at bedtime as needed. SEROquel Oral (Tablet 300 mg) 1 tablet, daily. Venlafaxine HCl ER Oral (Tablet Extended Release 24 Hour 150 mg) 170 mg , daily. Allergies: No Known Drug Allergy. Tape. SOCIAL HISTORY Former smoker. Alcohol use. No drug use. ADDITIONAL NOTES The nursing notes have been reviewed. PHYSICAL EXAM Vital Signs: 02/19/2017 16:15 BP: 173/91. HR: 97. RR: 18. O2 saturation: 97%. Temp: 98.2 F. Pain level now: 7/10. Appearance: Alert. ENT: Ears normal. Neck: Normal inspection. Neck supple. No lymphadenopathy. CVS: Heart sounds normal. Respiratory: No respiratory distress. Breath sounds normal. Abdomen: Soft and nontender. Bowel sounds normal. No abdominal tenderness. Back: Normal inspection. No CVA tenderness. Skin: Skin warm. Normal skin color. LABS, X-RAYS, AND EKG Laboratory Tests: UA-Culture if indicated: (JEANIE: 02/19/2017 16:22) ( MsgRcvd 02/19/2017 16:58) Final results Test Result Flag Units (Reference) URINE COLOR YELLOW URINE APPEARANCE CLEAR URINE GLUCOSE NEGATIVE (NEGATIVE) URINE BILIRUBIN NEGATIVE (NEGATIVE) URINE KETONE NEGATIVE (NEGATIVE) URINE SPECIFIC GRAVITY 1.025 (1.010-1.030) URINE PH 5.5 (5.0-8.0) URINE PROTEIN NEGATIVE (NEGATIVE) URINE UROBILINOGEN 0.2 EU/dL (0.2-1.0) URINE NITRITE NEGATIVE (NEGATIVE) URINE BLOOD 2+ (NEGATIVE) URINE LEUK ESTERASE NEGATIVE (NEGATIVE) URINE RBC 3-5 rbc/hpf (0-1) URINE WBC 0-1 wbc/hpf (0-1) URINE EPITHELIAL CELLS RARE EPI/hpf (0-5) URINE BACTERIA NONE SEEN (NONE SEEN) URINE COMMENT CULT NOT INDICATED URINE CULTURES ARE SET-UP BASED ON THE FOLLOWING CRITERIA:POSITIVE NITRITEPOSITIVE LEUKOCYTE ESTERASEGREATER THAN 10 WHITE BLOOD CELLSMODERATE (2+) OR GREATER BACTERIA . PROGRESS AND PROCEDURES Course of Care: No signs of acute surgical abdomen. Patient stable. Signs of small amount of hematuria. patient with no signs of surgical abdomen. Patient afebrile no signs of pyelonephritis. Patient should follow-up with urology. Previous ER visit reviewed. 02/16/17, was CT with small nephrolithiasis less than 4 mm. 02/19/2017 16:15 BP: 173/91. HR: 97. RR: 18. O2 saturation: 97%. Temp: 98.2 F. Pain level now: 7/10. Patient is stable. Physical exam findings are improved. Symptoms better. Patient/family counseled. Disposition: Discharged. CLINICAL IMPRESSION Left nephrolithiasis with renal colic. INSTRUCTIONS Drink plenty of fluids. (urology: [phone]). Prescription Medications: Hydrocodone/APAP 5mg / 325mg: take 1 orally every 6 hours as needed for pain. Dispense twenty (20). No refill. (Electronically signed by Nohemi Mcqueen P.A.-C 02/19/2017 17:33)
--- NOTE | 2017-02-19 17:12 | ED CLINICAL REPORT ---
Clinical Report - Physicians/Mid Levels [facility] [address] [place] [address] 02/19/2017 16:11 [id number] Time Seen: 16:57 Feb 19 2017. Arrived- By private vehicle. Historian- patient. HISTORY OF PRESENT ILLNESS Chief Complaint: FLANK PAIN. It is described as "pain" and it is described as located in the left flank. This started just prior to arrival and is still present. (Patient reports history of nephrolithiasis was recently seen here, not of medications. Denies any further right abdominal or flank pain. Reports only left flank pain. Pain is not exacerbated by any movement. Denies any urgency or frequency. Similar to what he had in the past. Patient does not have a urologist. Denies any new trauma. Denies any dysuria, urgency or frequency.). REVIEW OF SYSTEMS No constipation, hematemesis, difficulty with urination, chest pain or difficulty breathing. All systems otherwise negative, except as recorded above. PAST HISTORY Problems: MRSA Infection. Pneumonia. Ureterolithiasis. Asthma. Lipoma. Lung Disease. Bronchitis. Hypercholesterolemia. Substance Abuse. Back Pain. Hyperlipidemia. Depression. Nephrolithiasis. Hypertension. Dental Pain. Immunizations. Back pain . Htn. Ureterolithiasis [RuleOut]. Additional Surgeries: Knee Surgery. Shoulder Surgery. Medications: Tordol 10mg po- not taking due to nausea . Zofran 4mg ODT prn - only has 2 or 3 left . Flomax Oral 0.4 mg, daily. Vicodin 2 tabs every 4 hours- last dose 12 noon . Albuterol Sulfate HFA Inhalation. Atorvastatin Calcium Oral (Tablet 80 mg) 1 tablet, daily. Gabapentin Oral (Tablet 600 mg) 2 tablets, at bedtime as needed. SEROquel Oral (Tablet 300 mg) 1 tablet, daily. Venlafaxine HCl ER Oral (Tablet Extended Release 24 Hour 150 mg) 170 mg , daily. Allergies: No Known Drug Allergy. Tape. SOCIAL HISTORY Former smoker. Alcohol use. No drug use. ADDITIONAL NOTES The nursing notes have been reviewed. PHYSICAL EXAM Vital Signs: 02/19/2017 16:15 BP: 173/91. HR: 97. RR: 18. O2 saturation: 97%. Temp: 98.2 F. Pain level now: 7/10. Appearance: Alert. ENT: Ears normal. Neck: Normal inspection. Neck supple. No lymphadenopathy. CVS: Heart sounds normal. Respiratory: No respiratory distress. Breath sounds normal. Abdomen: Soft and nontender. Bowel sounds normal. No abdominal tenderness. Back: Normal inspection. No CVA tenderness. Skin: Skin warm. Normal skin color. LABS, X-RAYS, AND EKG Laboratory Tests: UA-Culture if indicated: (JEANIE: 02/19/2017 16:22) ( MsgRcvd 02/19/2017 16:58) Final results Test Result Flag Units (Reference) URINE COLOR YELLOW URINE APPEARANCE CLEAR URINE GLUCOSE NEGATIVE (NEGATIVE) URINE BILIRUBIN NEGATIVE (NEGATIVE) URINE KETONE NEGATIVE (NEGATIVE) URINE SPECIFIC GRAVITY 1.025 (1.010-1.030) URINE PH 5.5 (5.0-8.0) URINE PROTEIN NEGATIVE (NEGATIVE) URINE UROBILINOGEN 0.2 EU/dL (0.2-1.0) URINE NITRITE NEGATIVE (NEGATIVE) URINE BLOOD 2+ (NEGATIVE) URINE LEUK ESTERASE NEGATIVE (NEGATIVE) URINE RBC 3-5 rbc/hpf (0-1) URINE WBC 0-1 wbc/hpf (0-1) URINE EPITHELIAL CELLS RARE EPI/hpf (0-5) URINE BACTERIA NONE SEEN (NONE SEEN) URINE COMMENT CULT NOT INDICATED URINE CULTURES ARE SET-UP BASED ON THE FOLLOWING CRITERIA:POSITIVE NITRITEPOSITIVE LEUKOCYTE ESTERASEGREATER THAN 10 WHITE BLOOD CELLSMODERATE (2+) OR GREATER BACTERIA . PROGRESS AND PROCEDURES Course of Care: No signs of acute surgical abdomen. Patient stable. Signs of small amount of hematuria. patient with no signs of surgical abdomen. Patient afebrile no signs of pyelonephritis. Patient should follow-up with urology. Previous ER visit reviewed. 02/16/17, was CT with small nephrolithiasis less than 4 mm. 02/19/2017 16:15 BP: 173/91. HR: 97. RR: 18. O2 saturation: 97%. Temp: 98.2 F. Pain level now: 7/10. Patient is stable. Physical exam findings are improved. Symptoms better. Patient/family counseled. Disposition: Discharged. CLINICAL IMPRESSION Left nephrolithiasis with renal colic. INSTRUCTIONS Drink plenty of fluids. (urology: [phone]). Prescription Medications: Hydrocodone/APAP 5mg / 325mg: take 1 orally every 6 hours as needed for pain. Dispense twenty (20). No refill. (Electronically signed by Nohemi Mcqueen P.A.-C 02/19/2017 17:33)
--- NOTE | 2017-02-19 17:12 | ED NURSING NOTES ---
Clinical Report - Nurses [facility] [address] [place] [address] 02/19/2017 16:11 Patient: MAYRA MENSAH TRIAGE Triage time 1615. Acuity: LEVEL 4. Chief Complaint: (Pt was igor 3 days ago and dx with 7 kidney stones. pt states he is still having pain on left side and ran out of meds at noon (only taking vicodin, tordol made him severely nauseated, dispite zofran tablets)). 16:15. --16:26 Jazmin Sahni R.N. 16:15 02/19/17. BP: 173/91. HR: 97. RR: 18. O2 saturation: 97%. Temp: 98.2 F. Pain level now: 04/28. --16:26 Jazmin Sahni R.N. Weight: 81.6 kg stated. Height/Length: 72 inches Per Patient. BMI: 24.4. --16:24 Jazmin Sahni R.N. Medications Albuterol Sulfate HFA Inhalation. Atorvastatin Calcium Oral (Tablet 80 mg) 1 tablet, daily. Gabapentin Oral (Tablet 600 mg) 2 tablets, at bedtime as needed. SEROquel Oral (Tablet 300 mg) 1 tablet, daily. Venlafaxine HCl ER Oral (Tablet Extended Release 24 Hour 150 mg) 170 mg , daily. --16:20 Jazmin Sahni R.N. Vicodin 2 tabs every 4 hours- last dose 12 noon . --16:20 Jazmin Sahin R.N. Flomax Oral 0.4 mg, daily. --16:20 Jazmin Sahni R.N. Zofran 4mg ODT prn - only has 2 or 3 left . --16:21 Jazmin Sahni R.N. Tordol 10mg po- not taking due to nausea . --16:21 Jazmin Sahni R.N. The following entry was struck and corrected by Jazmin Sahni R.N., 16:22 (02/19/17) Reason for correction - other(correction). <<STRICKEN ENTRY-- Flomax Oral. --16:20 Jazmin Sahni R.N. --END STRIKE>>. Allergies Tape. --16:20 Jazmin Sahni R.N. No Known Drug Allergy. --16:23 Jazmin Sahni R.N. History Arrived by private vehicle. Historian: patient. Accompanied by (dropped off). ( right side "doesnt hurt anymore...I think I passed those stones....making progress"). SOCIAL HX: Former smoker (quit smoking 10 years ago, does chews 1 can a week). Occasional alcohol use. History of drug use: marijuana. --16:26 Jazmin Sahni R.N. PROBLEMS: MRSA Infection. Pneumonia. Ureterolithiasis. Asthma. Lipoma. Lung Disease. Bronchitis. Hypercholesterolemia. Substance Abuse. Hyperlipidemia. Depression. Nephrolithiasis. Hypertension. --16:23 Jazmin Sahni R.N. ADDITIONAL SURGERIES: Knee Surgery. Shoulder Surgery. --16:23 Jazmin Sahni R.N. Interventions ID band on patient. To treatment room. --16:26 Jazmin Sahni R.N. PHYSICAL ASSESSMENT 16:15. Ambulatory to room. Patient gowned. GENERAL / NEURO / PSYCH: Alert. Oriented X 4. Appears in pain. RESPIRATORY: Respirations not labored. CVS: Capillary refill less than 2 seconds. SKIN: Skin is warm and dry. --16:27 Jazmin Sahni R.N. NURSING PROGRESS NOTES 16:15. Patient gowned. Head of bed elevated. Reassurance given. Patient identifiers checked. Call light placed in reach. Side rails up. Bed placed in lowest position. Patient ready for evaluation- chart flagged. --16:26 Jazmin Sahni R.N. 16:30. Patient ID band checked for patient name and birthdate urine collected with return of yellow-colored clear urine; sample sent to lab for urinalysis and culture. Specimen labeled in the presence of the patient. --16:59 Jazmin Sahni R.N. 17:14 02/19/2017 Hydrocodone-APAP (Hydrocodone-Acetaminophen) PO 5/325 mg Tablets 2 tab given. Allergies verified, confirmed 5 rights and sedative warning given to the patient. --19:14 Jazmin Sahni R.N. DISPOSITION / DISCHARGE 17:25. Condition at departure: stable. No learning barriers present. Discharge instructions provided and reviewed with the patient. Reviewed medication(s) (vicodin). Patient verbalized understanding. Written instructions provided in Amharic. The patient was discharged home and accompanied by program trainer. He left the Emergency Department ambulatory and via private vehicle. Coating And Baking Operator driving. --19:13 Jazmin Sahni R.N. 17:25 02/19/17. BP: 170/82. HR: 88. RR: 20. O2 saturation: 99%. Temp: deferred. Pain level now: 810. --19:13 Jazmin Sahni R.N. Locked/Released at 02/19/2017 19:15 by Jazmin Sahni R.N.
--- NOTE | 2017-02-19 17:12 | ED ORDER SUMMARY ---
..... Patient: MAYRA MENSAH OrderSheet [facility] VisitID: [id number] [address] [place] [address] 56y, M Registration Date/Time: 02/19/2017 ORDER SHEET Weight: 81.6 kg (stated) Allergies: Tape, No Known Drug Allergy GENERAL ORDERS: UA-Culture if indicated Urgent (16:34 02/19/2017 DDean R.N. per protocol) ([facility] 16:36 Mica) (16:49 DDean R.N.) MEDICATION ORDERS: Hydrocodone-APAP PO 10/650 mg (NOW, HIGH ALERT MEDICATION) (17:00 02/19/2017 Eri Dennis) (19:14 DDean R.N.) IV FLUIDS: ORDER SHEET NOTES: [Electronically signed by Nohemi Mcqueen P.A.-C (17:33 02/19/2017)] [Electronically signed by Jazmin Sahni R.N. (19:15 02/19/2017)] [Electronically locked/signed by Jazmin Sahni R.N. (19:15 02/19/2017)]
--- NOTE | 2017-02-19 19:15 | ED MAR SUMMARY ---
..... Medication Administration Record [facility] [address] [place] [address] Patient: MAYRA MENSAH Visit ID: [id number] 56y, M Weight: 81.6 kg Height/Length: 72 in BMI: 24.4 ALLERGIES: Tape, No Known Drug Allergy Given 17:14 02/19/2017 Bora, Yara Wu Medication Administered: HYDROCODONE-APAP [PO] (HYDROCODONE-ACETAMINOPHEN), Dose: 2 tab 5/325 mg Tablets PO. Medication Ordered: Hydrocodone-APAP PO 10/650 mg (NOW, HIGH ALERT MEDICATION).
--- NOTE | 2017-02-19 19:15 | ED DISCHARGE INSTRUCTIONS ---
Patient: MAYRA MENSAH General Instructions [facility] VisitID: [id number] [place] [address] 56y, M Registration Date/Time: 02/19/2017 Left nephrolithiasis with renal colic. INSTRUCTIONS Drink plenty of fluids. (urology: [phone]). Prescription Medications: Hydrocodone/APAP 5mg / 325mg: take 1 orally every 6 hours as needed for pain. Dispense twenty (20). No refill. ADDITIONAL INFORMATION Kidney Stone (W/ Colic) The sharp cramping pain and nausea/vomiting that you have is due to a small stone which has formed in the kidney and is now passing down a narrow tube (ureter) on its way to your bladder. Once it reaches your bladder, the pain will stop. The stone may pass in your urine stream in one piece. [The size may be 1/16" to 1/4" (1-6mm)]. Or, the stone may also break up into xin fragments which you may not even notice. Once you have had a kidney stone, you are at risk for developing another one in the future. Home Care: Drink plenty of fluids (at least 8 to 10 glasses of water a day). Most stones will pass on their own, but may take from a few hours to a few days. Sometimes the stone is too large to pass by itself and special methods will have to be used to remove the stone. Each time you urinate, do so in a jar. Pour the urine from the jar through the strainer and into the toilet. Continue doing this until 24 hours after your pain stops. By then, if there was a kidney stone, it should pass from your bladder. Some stones dissolve into sand-like particles and pass right through the strainer. In that case, you wont ever see a stone. Save any stone that you find in the strainer and bring it to your doctor for analysis. It may be possible to prevent certain types of stones from forming. Therefore, it is important to know what kind of stone you have. Try to stay as active as possible since this will help the stone pass. Do not stay in bed unless your pain prevents you from getting up. You may notice a red, pink or brown color to your urine. This is normal while passing a kidney stone. Follow Up with your doctor or return to this facility if the pain lasts more than 48 hours. Get Prompt Medical Attention if any of the following occur: Pain that is not controlled by the medicine given Repeated vomiting or unable to keep down fluids Weakness, dizziness or fainting Fever of 100.4F (38C) or higher, or as directed by your healthcare provider Passage of solid red or brown urine (can't see through it) or urine with lots of blood clots Unable to pass urine for 8 hours and increasing bladder pressure Hydrocodone Bitartrate, Acetaminophen Oral tablet What is this medicine? ACETAMINOPHEN; HYDROCODONE (a set a JERAMIE srini fen; joellen droe KOE done) is a pain reliever. It is used to treat mild to moderate pain. How should I use this medicine? Take this medicine by mouth. Swallow it with a full glass of water. Follow the directions on the prescription label. If the medicine upsets your stomach, take the medicine with food or milk. Do not take more than you are told to take. Talk to your accountant systems regarding the use of this medicine in children. This medicine is not approved for use in children. What side effects may I notice from receiving this medicine? Side effects that you should report to your doctor or health healthcare interpreter as soon as possible: allergic reactions like skin rash, itching or hives, swelling of the face, lips, or tongue breathing problems confusion feeling faint or lightheaded, falls stomach pain yellowing of the eyes or skin Side effects that usually do not require medical attention (report to your doctor or health healthcare interpreter if they continue or are bothersome): nausea, vomiting stomach upset What may interact with this medicine? alcohol antihistamines isoniazid medicines for depression, anxiety, or psychotic disturbances medicines for sleep muscle relaxants naltrexone narcotic medicines (opiates) for pain phenobarbital ritonavir tramadol What if I miss a dose? If you miss a dose, take it as soon as you can. If it is almost time for your next dose, take only that dose. Do not take double or extra doses. Where should I keep my medicine? Keep out of the reach of children. This medicine can be abused. Keep your medicine in a safe place to protect it from theft. Do not share this medicine with anyone. Selling or giving away this medicine is dangerous and against the law. Store at room temperature between 15 and 30 degrees C (59 and 86 degrees F). Protect from light. Keep container tightly closed. Throw away any unused medicine after the expiration date. Discard unused medicine and used packaging carefully. Pets and children can be harmed if they find used or lost packages. What should I tell my health care provider before I take this medicine? They need to know if you have any of these conditions: brain tumor Crohn's disease, inflammatory bowel disease, or ulcerative colitis drink more than 3 alcohol-containing drinks per day drug abuse or addiction head injury heart or circulation problems kidney disease or problems going to the bathroom liver disease lung disease, asthma, or breathing problems an unusual or allergic reaction to acetaminophen, hydrocodone, other opioid analgesics, other medicines, foods, dyes, or preservatives or trying to get breast-feeding What should I watch for while using this medicine? Tell your doctor or health healthcare interpreter if your pain does not go away, if it gets worse, or if you have new or a different type of pain. You may develop tolerance to the medicine. Tolerance means that you will need a higher dose of the medicine for pain relief. Tolerance is normal and is expected if you take the medicine for a long time. Do not suddenly stop taking your medicine because you may develop a severe reaction. Your body becomes used to the medicine. This does NOT mean you are addicted. Addiction is a behavior related to getting and using a drug for a non-medical reason. If you have pain, you have a medical reason to take pain medicine. Your doctor will tell you how much medicine to take. If your doctor wants you to stop the medicine, the dose will be slowly lowered over time to avoid any side effects. You may get drowsy or dizzy when you first start taking the medicine or change doses. Do not drive, use machinery, or do anything that may be dangerous until you know how the medicine affects you. Stand or sit up slowly. There are different types of narcotic medicines (opiates) for pain. If you take more than one type at the same time, you may have more side effects. Give your health care provider a list of all medicines you use. Your doctor will tell you how much medicine to take. Do not take more medicine than directed. Call emergency for help if you have problems breathing. The medicine will cause constipation. Try to have a bowel movement at least every 2 to 3 days. If you do not have a bowel movement for 3 days, call your doctor or health healthcare interpreter. Too much acetaminophen can be very dangerous. Do not take Tylenol (acetaminophen) or medicines that contain acetaminophen with this medicine. Many non-prescription medicines contain acetaminophen. Always read the labels carefully. You have been given the following additional information: Kidney Stone W/ Colic Hydrocodone Bitartrate, Acetaminophen Oral tablet (Electronically signed by Nohemi Mcqueen P.A.-C 02/19/2017 17:33)
--- NOTE | 2017-02-19 19:15 | ED MED RECONCILIATION SUMMARY ---
Patient: MAYRA MENSAH Medication Reconciliation Report [facility] VisitID: [id number] [place] [address] 56y, M Registration Date/Time: 02/19/2017 Weight: 81.6 kg Height/Length: 72 in. BMI: 24.4 ALLERGIES: No Known Drug Allergy, Tape The patient's Home Medications are listed below: THE FOLLOWING MEDICATIONS NEED TO BE RECONCILED: Albuterol Sulfate HFA Inhalation Atorvastatin Calcium Oral (80 mg) 1 tablet, daily Flomax Oral 0.4 mg, daily Gabapentin Oral (600 mg) 2 tablets, at bedtime SEROquel Oral (300 mg) 1 tablet, daily Tordol 10mg po- not taking due to nausea Venlafaxine HCl ER Oral (150 mg) 170 mg , daily Vicodin 2 tabs every 4 hours- last dose 12 noon Zofran 4mg ODT prn - only has 2 or 3 left The source(s) of the original Home Medication information: Not obtained. The following Medications were given to the patient in the Emergency Department: Hydrocodone-APAP [PO] PO 2 tab, administered: 02/19/2017 5:14:00 PM The following Medications were prescribed to the patient: Hydrocodone/APAP 5mg / 325mg: take 1 orally every 6 hours as needed for pain. Dispense twenty (20). No refill. -- Nohemi Mcqueen P.A.-C
--- NOTE | 2017-02-19 19:15 | ED MAR SUMMARY ---
..... Medication Administration Record [facility] [address] [place] [address] Patient: MAYRA MENSAH Visit ID: [id number] 56y, M Weight: 81.6 kg Height/Length: 72 in BMI: 24.4 ALLERGIES: Tape, No Known Drug Allergy Given 17:14 02/19/2017 Bora, Yara Wu Medication Administered: HYDROCODONE-APAP [PO] (HYDROCODONE-ACETAMINOPHEN), Dose: 2 tab 5/325 mg Tablets PO. Medication Ordered: Hydrocodone-APAP PO 10/650 mg (NOW, HIGH ALERT MEDICATION).
--- NOTE | 2017-02-19 19:15 | ED DISCHARGE INSTRUCTIONS ---
Patient: MAYRA MENSAH General Instructions [facility] VisitID: [id number] [place] [address] 56y, M Registration Date/Time: 02/19/2017 Left nephrolithiasis with renal colic. INSTRUCTIONS Drink plenty of fluids. (urology: [phone]). Prescription Medications: Hydrocodone/APAP 5mg / 325mg: take 1 orally every 6 hours as needed for pain. Dispense twenty (20). No refill. ADDITIONAL INFORMATION Kidney Stone (W/ Colic) The sharp cramping pain and nausea/vomiting that you have is due to a small stone which has formed in the kidney and is now passing down a narrow tube (ureter) on its way to your bladder. Once it reaches your bladder, the pain will stop. The stone may pass in your urine stream in one piece. [The size may be 1/16" to 1/4" (1-6mm)]. Or, the stone may also break up into xin fragments which you may not even notice. Once you have had a kidney stone, you are at risk for developing another one in the future. Home Care: Drink plenty of fluids (at least 8 to 10 glasses of water a day). Most stones will pass on their own, but may take from a few hours to a few days. Sometimes the stone is too large to pass by itself and special methods will have to be used to remove the stone. Each time you urinate, do so in a jar. Pour the urine from the jar through the strainer and into the toilet. Continue doing this until 24 hours after your pain stops. By then, if there was a kidney stone, it should pass from your bladder. Some stones dissolve into sand-like particles and pass right through the strainer. In that case, you wont ever see a stone. Save any stone that you find in the strainer and bring it to your doctor for analysis. It may be possible to prevent certain types of stones from forming. Therefore, it is important to know what kind of stone you have. Try to stay as active as possible since this will help the stone pass. Do not stay in bed unless your pain prevents you from getting up. You may notice a red, pink or brown color to your urine. This is normal while passing a kidney stone. Follow Up with your doctor or return to this facility if the pain lasts more than 48 hours. Get Prompt Medical Attention if any of the following occur: Pain that is not controlled by the medicine given Repeated vomiting or unable to keep down fluids Weakness, dizziness or fainting Fever of 100.4F (38C) or higher, or as directed by your healthcare provider Passage of solid red or brown urine (can't see through it) or urine with lots of blood clots Unable to pass urine for 8 hours and increasing bladder pressure Hydrocodone Bitartrate, Acetaminophen Oral tablet What is this medicine? ACETAMINOPHEN; HYDROCODONE (a set a JERAMIE srini fen; joellen droe KOE done) is a pain reliever. It is used to treat mild to moderate pain. How should I use this medicine? Take this medicine by mouth. Swallow it with a full glass of water. Follow the directions on the prescription label. If the medicine upsets your stomach, take the medicine with food or milk. Do not take more than you are told to take. Talk to your sales enablement manager regarding the use of this medicine in children. This medicine is not approved for use in children. What side effects may I notice from receiving this medicine? Side effects that you should report to your doctor or health health care recruiter as soon as possible: allergic reactions like skin rash, itching or hives, swelling of the face, lips, or tongue breathing problems confusion feeling faint or lightheaded, falls stomach pain yellowing of the eyes or skin Side effects that usually do not require medical attention (report to your doctor or health health care recruiter if they continue or are bothersome): nausea, vomiting stomach upset What may interact with this medicine? alcohol antihistamines isoniazid medicines for depression, anxiety, or psychotic disturbances medicines for sleep muscle relaxants naltrexone narcotic medicines (opiates) for pain phenobarbital ritonavir tramadol What if I miss a dose? If you miss a dose, take it as soon as you can. If it is almost time for your next dose, take only that dose. Do not take double or extra doses. Where should I keep my medicine? Keep out of the reach of children. This medicine can be abused. Keep your medicine in a safe place to protect it from theft. Do not share this medicine with anyone. Selling or giving away this medicine is dangerous and against the law. Store at room temperature between 15 and 30 degrees C (59 and 86 degrees F). Protect from light. Keep container tightly closed. Throw away any unused medicine after the expiration date. Discard unused medicine and used packaging carefully. Pets and children can be harmed if they find used or lost packages. What should I tell my health care provider before I take this medicine? They need to know if you have any of these conditions: brain tumor Crohn's disease, inflammatory bowel disease, or ulcerative colitis drink more than 3 alcohol-containing drinks per day drug abuse or addiction head injury heart or circulation problems kidney disease or problems going to the bathroom liver disease lung disease, asthma, or breathing problems an unusual or allergic reaction to acetaminophen, hydrocodone, other opioid analgesics, other medicines, foods, dyes, or preservatives or trying to get breast-feeding What should I watch for while using this medicine? Tell your doctor or health health care recruiter if your pain does not go away, if it gets worse, or if you have new or a different type of pain. You may develop tolerance to the medicine. Tolerance means that you will need a higher dose of the medicine for pain relief. Tolerance is normal and is expected if you take the medicine for a long time. Do not suddenly stop taking your medicine because you may develop a severe reaction. Your body becomes used to the medicine. This does NOT mean you are addicted. Addiction is a behavior related to getting and using a drug for a non-medical reason. If you have pain, you have a medical reason to take pain medicine. Your doctor will tell you how much medicine to take. If your doctor wants you to stop the medicine, the dose will be slowly lowered over time to avoid any side effects. You may get drowsy or dizzy when you first start taking the medicine or change doses. Do not drive, use machinery, or do anything that may be dangerous until you know how the medicine affects you. Stand or sit up slowly. There are different types of narcotic medicines (opiates) for pain. If you take more than one type at the same time, you may have more side effects. Give your health care provider a list of all medicines you use. Your doctor will tell you how much medicine to take. Do not take more medicine than directed. Call emergency for help if you have problems breathing. The medicine will cause constipation. Try to have a bowel movement at least every 2 to 3 days. If you do not have a bowel movement for 3 days, call your doctor or health health care recruiter. Too much acetaminophen can be very dangerous. Do not take Tylenol (acetaminophen) or medicines that contain acetaminophen with this medicine. Many non-prescription medicines contain acetaminophen. Always read the labels carefully. You have been given the following additional information: Kidney Stone W/ Colic Hydrocodone Bitartrate, Acetaminophen Oral tablet (Electronically signed by Nohemi Mcqueen P.A.-C 02/19/2017 17:33)
--- NOTE | 2017-02-19 19:15 | ED MED RECONCILIATION SUMMARY ---
Patient: MAYRA MENSAH Medication Reconciliation Report [facility] VisitID: [id number] [place] [address] 56y, M Registration Date/Time: 02/19/2017 Weight: 81.6 kg Height/Length: 72 in. BMI: 24.4 ALLERGIES: No Known Drug Allergy, Tape The patient's Home Medications are listed below: THE FOLLOWING MEDICATIONS NEED TO BE RECONCILED: Albuterol Sulfate HFA Inhalation Atorvastatin Calcium Oral (80 mg) 1 tablet, daily Flomax Oral 0.4 mg, daily Gabapentin Oral (600 mg) 2 tablets, at bedtime SEROquel Oral (300 mg) 1 tablet, daily Tordol 10mg po- not taking due to nausea Venlafaxine HCl ER Oral (150 mg) 170 mg , daily Vicodin 2 tabs every 4 hours- last dose 12 noon Zofran 4mg ODT prn - only has 2 or 3 left The source(s) of the original Home Medication information: Not obtained. The following Medications were given to the patient in the Emergency Department: Hydrocodone-APAP [PO] PO 2 tab, administered: 02/19/2017 5:14:00 PM The following Medications were prescribed to the patient: Hydrocodone/APAP 5mg / 325mg: take 1 orally every 6 hours as needed for pain. Dispense twenty (20). No refill. -- Nohemi Mcqueen P.A.-C
== END 2017-02-19 17:25 | disposition home or self-care (01) ==
LOC: ED SRH 16:10
DX: N20.0 Calculus of kidney (principal); J45.909 Unspecified asthma, uncomplicated; I10 Essential (primary) hypertension; Z79.891 Long term (current) use of opiate analgesic; Z79.899 Other long term (current) drug therapy; Z87.891 Personal history of nicotine dependence
CPT/HCPCS: 90004

== ENCOUNTER 2017-04-16 17:41 | Emergency (ER) | payer OTHER ==
--- NOTE | 2017-04-16 18:39 | DIAGNOSTIC IMAGING REPORT ---
PROCEDURE: XR CHEST 2 VIEW INDICATION: SHORTNESS OF BREATH TECHNIQUE: PA and lateral view. COMPARISON: Chest x-ray 09/07/2016 FINDINGS: Lungs are clear. Cardiovascular structures are normal. Bony thorax is unremarkable. No significant interval change. IMPRESSION: 1. Negative chest.
--- NOTE | 2017-04-16 19:34 | ED NURSING NOTES ---
Clinical Report - Nurses [facility] [address] [place] [address] 04/16/2017 17:42 [id number] Triage time 17:55 Apr 16 2017. Acuity: LEVEL 3. Chief Complaint: "ASTHMA ATTACK". 17:57 04/16/17. 17:57 04/16/17. Alert. ( Pt states he had right shoulder surgery April 02. Pt states he has had activity intolerance due to this and been lying around.). SEPSIS SCREEN: Sepsis Screen. Negative (no infection suspected/documented). --18:00 Wicho Burns R.N. 17:55 04/16/17. BP: 160/93. HR: 90. RR: 22. O2 saturation: 97% on room air. Temp: 97.9 F (oral). Pain level now: 0/10. --18:00 Wicho Burns R.N. Weight: 83.9 kg stated. Height/Length: 72 inches Per Patient. BMI: 25.1. --17:55 Wicho Burns R.N. Medications Albuterol Sulfate HFA Inhalation. Atorvastatin Calcium Oral (Tablet 80 mg) 1 tablet, daily. Flomax Oral 0.4 mg, daily. Gabapentin Oral (Tablet 600 mg) 2 tablets, at bedtime as needed. SEROquel Oral (Tablet 300 mg) 1 tablet, daily. Tordol 10mg po- not taking due to nausea . Venlafaxine HCl ER Oral (Tablet Extended Release 24 Hour 150 mg) 170 mg , daily. Vicodin 2 tabs every 4 hours- last dose 12 noon . Zofran 4mg ODT prn - only has 2 or 3 left . --17:58 Wicho Burns R.N. OxyCODONE HCl Oral. --17:58 Wicho Burns R.N. Allergies BLEACH. --17:59 Wicho Burns R.N. The following entry was struck by Wicho Burns R.N., 17:59 (04/16/17) Reason - other. <<STRICKEN ENTRY-- No Known Drug Allergy. --17:58 Wicho Burns R.N. --END STRIKE>>. History Arrived by private vehicle. Historian: patient. Primary physician (KATIE BRADFORD). 17:57 04/16/17. ( SOB that started yesterday). He has had a cough and wheezing. 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 PAST MEDICAL HX: Immunizations: up-to-date. SOCIAL HX: Current every day light tobacco smoker (cigarette)- less than 1/2 a pack per day. No alcohol use or drug use. No infectious disease exposure. ABUSE ASSESSMENT: No report of abuse. FALL RISK ASSESSMENT: Fall risk assessment completed. No fall risk identified. NUTRITIONAL RISK ASSESSMENT: The nutritional risk assessment revealed no deficiencies. FUNCTIONAL ASSESSMENT: Functional assessment: no impairments noted. LEARNING NEEDS ASSESSMENT: The learning needs assessment revealed no barriers. SKIN INTEGRITY ASSESSMENT: Skin integrity risk assessment completed. No skin integrity risk identified. --18:00 Wicho Burns R.N. 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 --18:01 Wicho Burns R.N. PROBLEMS: MRSA Infection. Pneumonia. Ureterolithiasis. Asthma. Lipoma. Lung Disease. Bronchitis. Hypercholesterolemia. Substance Abuse. Back Pain. Hyperlipidemia. Depression. Nephrolithiasis. Hypertension. Dental Pain. Immunizations. Back pain . Htn. --17:59 Wicho Burns R.N. Ureterolithiasis [RuleOut]. --17:59 Wicho Burns R.N. ADDITIONAL SURGERIES: Knee Surgery. Shoulder Surgery. --17:59 Wicho Burns R.N. Assessment 17:57 04/16/17. --18:00 Wicho Burns R.N. Interventions 17:57 04/16/17. 17:57 04/16/17. ID and allergy band on patient. --18:00 Wicho Burns R.N. PHYSICAL ASSESSMENT 18:00 04/16/17. Ambulatory to room. GENERAL / NEURO / PSYCH: Appears anxious. RESPIRATORY: Mild respiratory distress. The patient can speak in full sentences. Expiratory wheezes present. CVS: Capillary refill less than 2 seconds. SKIN: Skin is warm and dry. --18:00 Wicho Burns R.N. NURSING PROGRESS NOTES 18:04/16/17. The plan of care for this patient has been created. Pulse oximeter and NIBP monitor placed on patient; monitor alarms on. Head of bed elevated. Reassurance given. Two patient identifiers checked. Call light placed in reach. Side rails up x 2. Bed placed in lowest position. Brakes of bed on. --18:00 Wicho Burns R.N. 18:04/16/17. Patient ready for evaluation- chart flagged and notification provided. --18: Wicho Burns R.N. 18:04/16/2017 Site #1 started via IV in the right antecubital space with an 20g angiocath, with aseptic technique and good blood return; one attempt. Blood drawn: rainbow set. Labeled in the presence of the patient. Saline lock flushed with 10 mL saline. --18:24 Wicho Burns R.N. 18:04/16/2017 Duoneb (Ipratropium-Albuterol) Neb TX 1 unit dose given. Given by the respiratory therapist. Allergies verified and confirmed 5 rights. --18:24 Wciho Burns R.N. 18:04/16/2017 Ativan (LORazepam) IVP 1 mg given over 2 minute(s) via site #1. Allergies verified, confirmed 5 rights and sedative warning given to the patient. IV patency established. IV site checked: no pain, redness, or swelling. IV flushed thoroughly pre- and post-medication administration. IVP given by RN. --18:24 Wicho Burns R.N. 18:19 04/16/2017 SOLU-MEDROL (MethylPREDNISolone Sodium Succ) IVP 120 mg given over 2 minute(s) via site #1. Allergies verified and confirmed 5 rights. IV patency established. IV site checked: no pain, redness, or swelling. IV flushed thoroughly pre- and post-medication administration. IVP given by RN. --18:29 Wicho Burns R.N. 18:04/16/2017 Started bag #1 1000 mL IV Fluids IV NS (Saline); at 1000 mL/hr over 1 hour(s) via site #1. Allergies verified and confirmed 5 rights. IV patency established. IV site checked: no pain, redness, or swelling. IV flushed thoroughly pre- and post-medication administration. Completed per protocol. --18:24 Wicho Burns R.N. 18:33 04/16/17. Patient transported to [place] by stretcher with tech. --18:33 Wicho Burns R.N. 18:41 04/16/17. BP: 140/91. HR: 89. RR: 17. O2 saturation: 96% on room air. --18:42 Wicho Burns R.N. 18:42 04/16/17. --18:42 Wicho Burns R.N. 18:42 04/16/17. Reassessment after medication administered. Overall patient status is improved- he states feels better. --18:42 Wicho Burns R.N. 18:42 04/16/17. Patient ID band checked for patient name and birthdate. Clean catch urine collected with return of yellow-colored urine; sample sent to lab for urinalysis and culture. Specimen labeled in the presence of the patient. --18:42 Wicho Burns R.N. 18:52 04/16/2017 Ativan (LORazepam) IVP 1 mg given over 2 minute(s) via site #1. Allergies verified, confirmed 5 rights and sedative warning given to the patient. IV patency established. IV site checked: no pain, redness, or swelling. IV flushed thoroughly pre- and post-medication administration. IVP given by RN. --18:52 Wicho Burns R.N. 18:53 04/16/17. ( RT at bedside educating how to completed IS, pt able to pull IS to 2200, 5x). --18:53 Wicho Burns R.N. 19:14 04/16/2017 IV Fluids IV NS Discontinued: bag #1 infused. Total amount infused: 1000 mL. IV patency established. IV site checked: no pain, redness, or swelling. IV flushed thoroughly. --19:14 Wicho Burns R.N. 19:15 04/16/2017 Started bag #2 1000 mL IV Fluids IV NS (Saline); at 1000 mL/hr over 1 hour(s) via site #1. Allergies verified and confirmed 5 rights. Completed per protocol. --19:15 Wicho Burns R.N. 19:15 04/16/17. Reassessment after medication administered. Overall patient status is improved- he states feels better. --19:15 Wicho Burns R.N. DISPOSITION / DISCHARGE 19:40. Departure time: 19:40. No learning barriers present. Discharge instructions provided and reviewed with the patient. Reviewed warnings. Reviewed medication(s). Treatments reviewed. Reviewed referrals. Patient verbalized understanding. Written instructions provided in Lao. The patient was discharged home. He left the Emergency Department ambulatory and via private vehicle. --19:44 Dona Calhoun R.N. 18:41 04/16/17. BP: 140/91. HR: 89. RR: 17. O2 saturation: 96% on room air. --19:44 Dona Calhoun R.N. Locked/Released at 04/16/2017 22:17 by Dona Calhoun R.N.
--- NOTE | 2017-04-16 19:34 | ED ORDER SUMMARY ---
..... Patient: MAYRA MENSAH OrderSheet [facility] VisitID: [id number] [place] [address] 56y, M Registration Date/Time: 04/16/2017 ORDER SHEET Weight: 83.9 kg (stated) Allergies: BLEACH GENERAL ORDERS: Chest 2V Urgent (18:04 04/16/2017 EKoroleva P.A.-C) (Ack 18:06 LNations ER Tech1) (18:36 LNations ER Tech1) CBC w Diff Urgent (18:04 04/16/2017 EKoroleva P.A.-C) (Ack 18:05 LNations ER Tech1) (18:22 JBoardley R.N.) UA-Culture if indicated Urgent (18:04 04/16/2017 EKoroleva P.A.-C) (Ack 18:06 LNations ER Tech1) (18:41 JBoardley R.N.) CMP Urgent (18:04 04/16/2017 EKoroleva P.A.-C) (Ack 18:06 LNations ER Tech1) (18:22 JBoardley R.N.) D-Dimer Urgent (18:44 04/16/2017 EKoroleva P.A.-C) (Ack 18:44 LNations ER Tech1) (18:49 JBoardley R.N.) MEDICATION ORDERS: DuoNeb Neb Tx 1 unit dose (NOW) (18:04 04/16/2017 EKoroleva P.A.-C) (Ack 18:05 JBoardley R.N.) (18:24 JBoardley R.N.) IV FLUIDS: IV NS : initial bolus 1000 mL (1000 mL/hr), then 1000 mL/hr for X1 (NOW); Caleb (18:04 04/16/2017 EKoroleva P.A.-C) (Ack 18:05 JBoardley R.N.) (18:24 JBoardley R.N.) Ativan IV 1 mg (HIGH ALERT MEDICATION, NOW) (18:04 04/16/2017 EKoroleva P.A.-C) (Ack 18:05 JBoardley R.N.) (18:24 JBoardley R.N.) Solu-MEDROL IV 120 mg (NOW) (18:11 04/16/2017 Eri Dennis) (Ack 18:24 JBoardley R.N.) (18:29 JBoardley R.N.) Ativan IV 1 mg (HIGH ALERT MEDICATION, NOW) (18:49 04/16/2017 Eri Dennis) (18:52 JBoardley R.N.) ORDER SHEET NOTES: [Electronically signed by Nohemi Mcqueen P.A.-C (20:17 04/16/2017)] [Electronically signed by Dona Calhoun R.N. (22:17 04/16/2017)] [Electronically locked/signed by Dona Calhoun R.N. (22:17 04/16/2017)]
--- NOTE | 2017-04-16 19:34 | ED NURSING NOTES ---
Clinical Report - Nurses [facility] [address] [place] [address] 04/16/2017 17:42 [id number] Triage time 17:55 Apr 16 2017. Acuity: LEVEL 3. Chief Complaint: "ASTHMA ATTACK". 17:57 04/16/17. 17:57 04/16/17. Alert. ( Pt states he had right shoulder surgery April 02. Pt states he has had activity intolerance due to this and been lying around.). SEPSIS SCREEN: Sepsis Screen. Negative (no infection suspected/documented). --18:00 Wicho Burns R.N. 17:55 04/16/17. BP: 160/93. HR: 90. RR: 22. O2 saturation: 97% on room air. Temp: 97.9 F (oral). Pain level now: 0/10. --18:00 Wicho Burns R.N. Weight: 83.9 kg stated. Height/Length: 72 inches Per Patient. BMI: 25.1. --17:55 Wicho Burns R.N. Medications Albuterol Sulfate HFA Inhalation. Atorvastatin Calcium Oral (Tablet 80 mg) 1 tablet, daily. Flomax Oral 0.4 mg, daily. Gabapentin Oral (Tablet 600 mg) 2 tablets, at bedtime as needed. SEROquel Oral (Tablet 300 mg) 1 tablet, daily. Tordol 10mg po- not taking due to nausea . Venlafaxine HCl ER Oral (Tablet Extended Release 24 Hour 150 mg) 170 mg , daily. Vicodin 2 tabs every 4 hours- last dose 12 noon . Zofran 4mg ODT prn - only has 2 or 3 left . --17:58 Wicho Burns R.N. OxyCODONE HCl Oral. --17:58 Wicho Burns R.N. Allergies BLEACH. --17:59 Wicho Burns R.N. The following entry was struck by Wicho Burns R.N., 17:59 (04/16/17) Reason - other. <<STRICKEN ENTRY-- No Known Drug Allergy. --17:58 Wicho Burns R.N. --END STRIKE>>. History Arrived by private vehicle. Historian: patient. Primary physician (KATIE BRADFORD). 17:57 04/16/17. ( SOB that started yesterday). He has had a cough and wheezing. 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 PAST MEDICAL HX: Immunizations: up-to-date. SOCIAL HX: Current every day light tobacco smoker (cigarette)- less than 1/2 a pack per day. No alcohol use or drug use. No infectious disease exposure. ABUSE ASSESSMENT: No report of abuse. FALL RISK ASSESSMENT: Fall risk assessment completed. No fall risk identified. NUTRITIONAL RISK ASSESSMENT: The nutritional risk assessment revealed no deficiencies. FUNCTIONAL ASSESSMENT: Functional assessment: no impairments noted. LEARNING NEEDS ASSESSMENT: The learning needs assessment revealed no barriers. SKIN INTEGRITY ASSESSMENT: Skin integrity risk assessment completed. No skin integrity risk identified. --18:00 Wicho Burns R.N. 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 --18:01 Wicho Burns R.N. PROBLEMS: MRSA Infection. Pneumonia. Ureterolithiasis. Asthma. Lipoma. Lung Disease. Bronchitis. Hypercholesterolemia. Substance Abuse. Back Pain. Hyperlipidemia. Depression. Nephrolithiasis. Hypertension. Dental Pain. Immunizations. Back pain . Htn. --17:59 Wicho Burns R.N. Ureterolithiasis [RuleOut]. --17:59 Wicho Burns R.N. ADDITIONAL SURGERIES: Knee Surgery. Shoulder Surgery. --17:59 Wicho Burns R.N. Assessment 17:57 04/16/17. --18:00 Wicho Burns R.N. Interventions 17:57 04/16/17. 17:57 04/16/17. ID and allergy band on patient. --18:00 Wicho Burns R.N. PHYSICAL ASSESSMENT 18:00 04/16/17. Ambulatory to room. GENERAL / NEURO / PSYCH: Appears anxious. RESPIRATORY: Mild respiratory distress. The patient can speak in full sentences. Expiratory wheezes present. CVS: Capillary refill less than 2 seconds. SKIN: Skin is warm and dry. --18:00 Wicho Burns R.N. NURSING PROGRESS NOTES 18:04/16/17. The plan of care for this patient has been created. Pulse oximeter and NIBP monitor placed on patient; monitor alarms on. Head of bed elevated. Reassurance given. Two patient identifiers checked. Call light placed in reach. Side rails up x 2. Bed placed in lowest position. Brakes of bed on. --18:00 Wicho Burns R.N. 18:04/16/17. Patient ready for evaluation- chart flagged and notification provided. --18: Wicho Burns R.N. 18:04/16/2017 Site #1 started via IV in the right antecubital space with an 20g angiocath, with aseptic technique and good blood return; one attempt. Blood drawn: rainbow set. Labeled in the presence of the patient. Saline lock flushed with 10 mL saline. --18:24 Wicho Burns R.N. 18:04/16/2017 Duoneb (Ipratropium-Albuterol) Neb TX 1 unit dose given. Given by the respiratory therapist. Allergies verified and confirmed 5 rights. --18:24 Wicho Burns R.N. 18:04/16/2017 Ativan (LORazepam) IVP 1 mg given over 2 minute(s) via site #1. Allergies verified, confirmed 5 rights and sedative warning given to the patient. IV patency established. IV site checked: no pain, redness, or swelling. IV flushed thoroughly pre- and post-medication administration. IVP given by RN. --18:24 Wicho Burns R.N. 18:19 04/16/2017 SOLU-MEDROL (MethylPREDNISolone Sodium Succ) IVP 120 mg given over 2 minute(s) via site #1. Allergies verified and confirmed 5 rights. IV patency established. IV site checked: no pain, redness, or swelling. IV flushed thoroughly pre- and post-medication administration. IVP given by RN. --18:29 Wicho Burns R.N. 18:04/16/2017 Started bag #1 1000 mL IV Fluids IV NS (Saline); at 1000 mL/hr over 1 hour(s) via site #1. Allergies verified and confirmed 5 rights. IV patency established. IV site checked: no pain, redness, or swelling. IV flushed thoroughly pre- and post-medication administration. Completed per protocol. --18:24 Wicho Burns R.N. 18:33 04/16/17. Patient transported to [place] by stretcher with tech. --18:33 Wicho Burns R.N. 18:41 04/16/17. BP: 140/91. HR: 89. RR: 17. O2 saturation: 96% on room air. --18:42 Wicho Burns R.N. 18:42 04/16/17. --18:42 Wicho Burns R.N. 18:42 04/16/17. Reassessment after medication administered. Overall patient status is improved- he states feels better. --18:42 Wicho Burns R.N. 18:42 04/16/17. Patient ID band checked for patient name and birthdate. Clean catch urine collected with return of yellow-colored urine; sample sent to lab for urinalysis and culture. Specimen labeled in the presence of the patient. --18:42 Wicho Burns R.N. 18:52 04/16/2017 Ativan (LORazepam) IVP 1 mg given over 2 minute(s) via site #1. Allergies verified, confirmed 5 rights and sedative warning given to the patient. IV patency established. IV site checked: no pain, redness, or swelling. IV flushed thoroughly pre- and post-medication administration. IVP given by RN. --18:52 Wicho Burns R.N. 18:53 04/16/17. ( RT at bedside educating how to completed IS, pt able to pull IS to 2200, 5x). --18:53 Wicho Burns R.N. 19:14 04/16/2017 IV Fluids IV NS Discontinued: bag #1 infused. Total amount infused: 1000 mL. IV patency established. IV site checked: no pain, redness, or swelling. IV flushed thoroughly. --19:14 Wicho Burns R.N. 19:15 04/16/2017 Started bag #2 1000 mL IV Fluids IV NS (Saline); at 1000 mL/hr over 1 hour(s) via site #1. Allergies verified and confirmed 5 rights. Completed per protocol. --19:15 Wicho Burns R.N. 19:15 04/16/17. Reassessment after medication administered. Overall patient status is improved- he states feels better. --19:15 Wicho Burns R.N. DISPOSITION / DISCHARGE 19:40. Departure time: 19:40. No learning barriers present. Discharge instructions provided and reviewed with the patient. Reviewed warnings. Reviewed medication(s). Treatments reviewed. Reviewed referrals. Patient verbalized understanding. Written instructions provided in Togolese. The patient was discharged home. He left the Emergency Department ambulatory and via private vehicle. --19:44 Dona Calhoun R.N. 18:41 04/16/17. BP: 140/91. HR: 89. RR: 17. O2 saturation: 96% on room air. --19:44 Dona Calhoun R.N. Locked/Released at 04/16/2017 22:17 by Dona Calhoun R.N.
--- NOTE | 2017-04-16 19:34 | ED ORDER SUMMARY ---
..... Patient: MAYRA MENSAH OrderSheet [facility] VisitID: [id number] [place] [address] 56y, M Registration Date/Time: 04/16/2017 ORDER SHEET Weight: 83.9 kg (stated) Allergies: BLEACH GENERAL ORDERS: Chest 2V Urgent (18:04 04/16/2017 EKoroleva P.A.-C) (Ack 18:06 LNations ER Tech1) (18:36 LNations ER Tech1) CBC w Diff Urgent (18:04 04/16/2017 EKoroleva P.A.-C) (Ack 18:05 LNations ER Tech1) (18:22 JBoardley R.N.) UA-Culture if indicated Urgent (18:04 04/16/2017 EKoroleva P.A.-C) (Ack 18:06 LNations ER Tech1) (18:41 JBoardley R.N.) CMP Urgent (18:04 04/16/2017 EKoroleva P.A.-C) (Ack 18:06 LNations ER Tech1) (18:22 JBoardley R.N.) D-Dimer Urgent (18:44 04/16/2017 EKoroleva P.A.-C) (Ack 18:44 LNations ER Tech1) (18:49 JBoardley R.N.) MEDICATION ORDERS: DuoNeb Neb Tx 1 unit dose (NOW) (18:04 04/16/2017 EKoroleva P.A.-C) (Ack 18:05 JBoardley R.N.) (18:24 JBoardley R.N.) IV FLUIDS: IV NS : initial bolus 1000 mL (1000 mL/hr), then 1000 mL/hr for X1 (NOW); Caleb (18:04 04/16/2017 EKoroleva P.A.-C) (Ack 18:05 JBoardley R.N.) (18:24 JBoardley R.N.) Ativan IV 1 mg (HIGH ALERT MEDICATION, NOW) (18:04 04/16/2017 EKoroleva P.A.-C) (Ack 18:05 JBoardley R.N.) (18:24 JBoardley R.N.) Solu-MEDROL IV 120 mg (NOW) (18:11 04/16/2017 Eri Dennis) (Ack 18:24 JBoardley R.N.) (18:29 JBoardley R.N.) Ativan IV 1 mg (HIGH ALERT MEDICATION, NOW) (18:49 04/16/2017 Eri Dennis) (18:52 JBoardley R.N.) ORDER SHEET NOTES: [Electronically signed by Nohemi Mcqueen P.A.-C (20:17 04/16/2017)] [Electronically signed by Dona Calhoun R.N. (22:17 04/16/2017)] [Electronically locked/signed by Dona Calhoun R.N. (22:17 04/16/2017)]
--- NOTE | 2017-04-16 19:34 | ED CLINICAL REPORT ---
Clinical Report - Physicians/Mid Levels [facility] [address] [place] [address] 04/16/2017 17:42 [id number] Time Seen: 20:08 Apr 16 2017. Arrived- By private vehicle. Historian- patient. HISTORY OF PRESENT ILLNESS Chief Complaint: DYSPNEA. This started yesterday and is still present. The dyspnea is described as moderate. No cough, fever, chest pain or discomfort or orthopnea. (patient status post shoulder surgery 2 weeks previously, now having increasing shortness of breath, has been using nebulizer treatment at home today, with minimal relief. She denies any fevers or chills. Denies new cough. Reports history of asthma, and this is a reoccurrence.). REVIEW OF SYSTEMS The patient has not had weight loss. No sinus drainage, nausea, vomiting, abdominal pain or skin rash. No enlarged lymph nodes. All systems otherwise negative, except as recorded above. PAST HISTORY Problems: MRSA Infection. Pneumonia. Ureterolithiasis. Asthma. Lipoma. Lung Disease. Bronchitis. Hypercholesterolemia. Substance Abuse. Back Pain. Hyperlipidemia. Depression. Nephrolithiasis. Hypertension. Dental Pain. Immunizations. Back pain . Htn. Ureterolithiasis [RuleOut]. Additional Surgeries: Knee Surgery. Shoulder Surgery. Medications: OxyCODONE HCl Oral. Albuterol Sulfate HFA Inhalation. Atorvastatin Calcium Oral (Tablet 80 mg) 1 tablet, daily. Flomax Oral 0.4 mg, daily. Gabapentin Oral (Tablet 600 mg) 2 tablets, at bedtime as needed. SEROquel Oral (Tablet 300 mg) 1 tablet, daily. Tordol 10mg po- not taking due to nausea . Venlafaxine HCl ER Oral (Tablet Extended Release 24 Hour 150 mg) 170 mg , daily. Vicodin 2 tabs every 4 hours- last dose 12 noon . Zofran 4mg ODT prn - only has 2 or 3 left . Allergies: BLEACH. SOCIAL HISTORY Smoker- current status unknown. No alcohol use or drug use. ADDITIONAL NOTES The nursing notes have been reviewed. PHYSICAL EXAM Vital Signs: 04/16/2017 17:55 BP: 160/93. HR: 90. RR: 22. O2 saturation: 97%. Temp: 97.9 F. Pain level now: 0/10. Appearance: Alert. No acute distress. Eyes: Eyes normal inspection. ENT: Ears normal. Neck: Normal inspection. No thyromegaly. CVS: Normal heart rate and rhythm. Heart sounds normal. Respiratory: Respiratory distress. Decreased air movement. Wheezing present. Abdomen: Soft and nontender. No abdominal tenderness, rebound tenderness or distention. Back: Normal inspection. No CVA tenderness. Skin: Skin warm. Normal skin color. Neuro: Oriented X 3. LABS, X-RAYS, AND EKG Chest X-ray: (IMPRESSION: 1. Negative chest. Electronically Final signed by:Hari Reid MD 04/16/2017 6:38:40 PM). Laboratory Tests: UA-Culture if indicated: (JEANIE: 04/16/2017 18:30) ( [facility] 04/16/2017 19:15) Final results Test Result Flag Units (Reference) URINE COLOR YELLOW URINE APPEARANCE CLEAR URINE GLUCOSE NEGATIVE (NEGATIVE) URINE BILIRUBIN NEGATIVE (NEGATIVE) URINE KETONE NEGATIVE (NEGATIVE) URINE SPECIFIC GRAVITY >= 1.030 (1.010-1.030) URINE PH 6.0 (5.0-8.0) URINE PROTEIN NEGATIVE (NEGATIVE) URINE UROBILINOGEN 0.2 EU/dL (0.2-1.0) URINE NITRITE NEGATIVE (NEGATIVE) URINE BLOOD 2+ (NEGATIVE) URINE LEUK ESTERASE NEGATIVE (NEGATIVE) URINE RBC 0-1 rbc/hpf (0-1) URINE WBC 0-1 wbc/hpf (0-1) URINE EPITHELIAL CELLS 0-1 EPI/hpf (0-5) URINE BACTERIA NONE SEEN (NONE SEEN) URINE COMMENT CULT NOT INDICATED 2+ MUCUSURINE CULTURES ARE SET-UP BASED ON THE FOLLOWING CRITERIA:POSITIVE NITRITEPOSITIVE LEUKOCYTE ESTERASEGREATER THAN 10 WHITE BLOOD CELLSMODERATE (2+) OR GREATER BACTERIA CBC w Diff: (JENAIE: 04/16/2017 18:10) ( [facility] 04/16/2017 18:33) Final results Test Result Flag Units (Reference) WHITE BLOOD COUNT 10.4 K/uL (4.5-11.5) RED BLOOD COUNT 5.05 M/uL (4.50-5.90) HEMOGLOBIN 15.1 gm/dL (13.5-17.5) HEMATOCRIT 44.6 % (41.0-53.0) MEAN CELL VOLUME 88 fL (80-100) MEAN CORPUSCULAR HGB 30 pg (26-34) MEAN CORPUSCULAR HGB CONC 34 g/dL (31-37) RED CELL DISTRIBUTION WIDTH 14.6 % (11.6-14.8) PLATELET COUNT 263 K/uL (150-400) NEUTROPHIL % 77.5 H % (50-75) LYMPH % 14.8 L % (25-40) MONO % 3.7 % (3-14) EOSINOPHIL % 3.7 % (0-4) BASOPHIL % 0.3 % (0-2) [id number]: (JEANIE: 04/16/2017 18:15) ( [facility] 04/16/2017 18:59) Final results Test Result Flag Units (Reference) D-DIMER QUANTITATIVE < 0.27 L ug/mLFEU (0.27-0.52) The primary value of this quantitative assay relates toits negative predictive value (i.e. exclusion) of pulmonaryembolism/deep vein thrombosis/DIC.Elevated levels of d-dimer may also occur with:, age, cancer, inflammation, liver disease,post-op, infection, hematoma, coronary disease, peripheralarteriopathy, bleeding disorders and thrombolytic treatment.Results should be correlated with other clinical andradiological data.Testing Methodology: Latex Immunoassay CMP: (JEANIE: 04/16/2017 18:10) ( [facility] 04/16/2017 18:49) Final results Test Result Flag Units (Reference) GLUCOSE 115 H mg/dL (70-110) BUN 18 mg/dL (7-18) CREATININE 1.1 mg/dL (0.6-1.3) Estimated GFR >60 mL/min Estimated GFR- >60 mL/min Note: Persistent reduction over 3 months in eGFR<60 mL/min/1.73 m2 defines CKD. Patients with eGFR values>=60 mL/min/1.73 m2 may also have CKD if evidence ofpersistent proteinuria. Additional information may be foundat www.kidney.org. SODIUM 142 mmol/L (136-145) POTASSIUM 3.7 mmol/L (3.5-5.1) CHLORIDE 104 mmol/L (98-107) CARBON DIOXIDE 26 mmol/L (21-32) CALCIUM 8.6 mg/dL (8.5-10.1) TOTAL PROTEIN 7.2 g/dL (6.4-8.2) ALBUMIN 3.9 g/dL (3.3-5.0) BILIRUBIN, TOTAL 0.7 mg/dL (0.0-1.0) ALKALINE PHOSPHATASE 91 U/L (46-116) AST (SGOT) 20 U/L (15-37) ALT (SGPT) 26 U/L (12-78) . PROGRESS AND PROCEDURES Course of Care: patient was wheezing diffusely with short straightforward sentences upon arrival, such improved while he was here, with DuoNeb treatment, Solu-Medrol. Patient with no further incidence shortness of breath, given Ativan as he was rather anxious. We'll continue outpatient Medrol Dosepak. Patient with no signs of acute infiltrate. D.dimer negative Neg le swelling. 04/16/2017 18:41 BP: 140/91. HR: 89. RR: 17. O2 saturation: 96%. Patient is stable. Symptoms better. Patient/family counseled. Disposition: Discharged. Condition: good. CLINICAL IMPRESSION Moderate persistent asthma with an acute exacerbation. INSTRUCTIONS Warnings: Further evaluation is necessary. Prescription Medications: Medrol Dosepak: take according to package directions. Dispense one (1) dosepak. No refills. Substitution is permissible. Follow-up: Follow up with your doctor in three days. (Electronically signed by Nohemi Mcqueen P.A.-C 04/16/2017 20:17)
--- NOTE | 2017-04-16 22:17 | ED MAR SUMMARY ---
..... Medication Administration Record [facility] [address] [place] [address] Patient: MAYRA MENSAH Visit ID: [id number] 56y, M Weight: 83.9 kg Height/Length: 72 in BMI: 25.1 ALLERGIES: BLEACH Given 18:09 04/16/2017 Wicho Burns R.N. Medication Administered: DUONEB [NEB TX] (IPRATROPIUM-ALBUTEROL), Dose: 1 unit dose Neb TX. Medication Ordered: DuoNeb Neb Tx 1 unit dose (NOW). Given 18:09 04/16/2017 Wicho Burns R.N. Medication Administered: ATIVAN [IVP] (LORAZEPAM), Dose: 1 mg IVP over 2 minute(s), Site: #1 right AC. Medication Ordered: Ativan IV 1 mg (HIGH ALERT MEDICATION, NOW). Given 18:19 04/16/2017 Wicho Burns R.N. Medication Administered: SOLU-MEDROL [IVP] (METHYLPREDNISOLONE SODIUM SUCC), Dose: 120 mg IVP over 2 minute(s), Site: #1 right AC. Medication Ordered: Solu-MEDROL IV 120 mg (NOW). Start 18:24 04/16/2017 Wicho Burns R.N., Stop 19:14 04/16/2017 Wicho Burns R.N. Medication Administered: IV NS (SALINE), Dose: IV Fluids over 1 hour(s), Rate: 1000 mL/hr, Dispensed: 1000 mL bag, Site: #1 right AC. Medication Ordered: IV NS : initial bolus 1000 mL (1000 mL/hr), then 1000 mL/hr for X1 (NOW); Caleb. Given 18:52 04/16/2017 Wicho Burns R.N. Medication Administered: ATIVAN [IVP] (LORAZEPAM), Dose: 1 mg IVP over 2 minute(s), Site: #1 right AC. Medication Ordered: Ativan IV 1 mg (HIGH ALERT MEDICATION, NOW). Start 19:15 04/16/2017 Wicho Burns R.N. Medication Administered: IV NS (SALINE), Dose: IV Fluids over 1 hour(s), Rate: 1000 mL/hr, Dispensed: 1000 mL bag, Site: #1 right AC. Medication Ordered: IV NS : initial bolus 1000 mL (1000 mL/hr), then 1000 mL/hr for X1 (NOW); Caleb.
--- NOTE | 2017-04-16 22:17 | ED MED RECONCILIATION SUMMARY ---
Patient: MAYRA MENSAH Medication Reconciliation Report [facility] VisitID: [id number] [place] [address] 56y, M Registration Date/Time: 04/16/2017 Weight: 83.9 kg Height/Length: 72 in. BMI: 25.1 ALLERGIES: BLEACH The patient's Home Medications are listed below: THE FOLLOWING MEDICATIONS NEED TO BE RECONCILED: Albuterol Sulfate HFA Inhalation Atorvastatin Calcium Oral (80 mg) 1 tablet, daily Flomax Oral 0.4 mg, daily Gabapentin Oral (600 mg) 2 tablets, at bedtime OxyCODONE HCl Oral SEROquel Oral (300 mg) 1 tablet, daily Tordol 10mg po- not taking due to nausea Venlafaxine HCl ER Oral (150 mg) 170 mg , daily Vicodin 2 tabs every 4 hours- last dose 12 noon Zofran 4mg ODT prn - only has 2 or 3 left The source(s) of the original Home Medication information: Not obtained. The following Medications were given to the patient in the Emergency Department: IV NS IV Fluids bolus 0, then 1000 mL/hr, administered: 04/16/2017 6:24:00 PM Duoneb [Neb Tx] Neb TX 1 unit dose, administered: 04/16/2017 6:09:00 PM Ativan [IVP] IVP 1 mg, administered: 04/16/2017 6:09:00 PM SOLU-MEDROL [IVP] IVP 120 mg, administered: 04/16/2017 6:19:00 PM Ativan [IVP] IVP 1 mg, administered: 04/16/2017 6:52:00 PM IV NS IV Fluids bolus 0, then 1000 mL/hr, administered: 04/16/2017 7:15:00 PM The following Medications were prescribed to the patient: Medrol Dosepak: take according to package directions. Dispense one (1) dosepak. No refills. Substitution is permissible. -- Nohemi Mcqueen P.A.-C
--- NOTE | 2017-04-16 22:17 | ED DISCHARGE INSTRUCTIONS ---
Patient: MAYRA MENSAH General Instructions [facility] VisitID: [id number] [place] [address] 56y, M Registration Date/Time: 04/16/2017 Moderate persistent asthma with an acute exacerbation. INSTRUCTIONS Warnings: Further evaluation is necessary. Prescription Medications: Medrol Dosepak: take according to package directions. Dispense one (1) dosepak. No refills. Substitution is permissible. Follow-up: Follow up with your doctor in three days. ADDITIONAL INFORMATION Asthma [Adult] Asthma is a disease where the small air passages within the lung go into spasm and restrict the flow of air. Inflammation and swelling of the airways cause further restriction. During an acute asthma attack, these factors cause difficulty breathing, wheezing, cough and chest tightness. An asthma attack can be triggered by many things. Common triggers include the common cold, bronchitis, pneumonia, irritants such as smoke or pullutants in the air, emotional upset and heavy exercise. Inmany adults with asthma, allergies todust, mold, pollen and animal dander can cause an asthma attack. Skipping doses of daily asthma medicine can also bring on an asthma attack. Asthma can be controlled with proper medicines and decreased exposure to known allergens. Home Care: Take prescribed medicine exactly at the times advised. If you have a hand-held inhaler or aerosol breathing medicine, do not use it more than once every four hours, unless told to do so. (If you need this medicine more than every four hours, you may need to return to the Emergency Room.) If prescribed an antibiotic or prednisone, take all of the medicine even if you are feeling better after a few days. Do not smoke. Avoid being exposed to the smoke of others. Some persons with asthma have worsening of their symptoms when they take aspirin and non-steroidal medicines like ibuprofen (Motrin, Advil) and naproxen (Aleve, Naprosyn). Talk to your doctor if you think this may apply to you. Acetaminophen (Tylenol)should be safe to use. Follow Up with your doctor, or as advised by our staff. Always bring all of your current medicines with you for your doctor to see. If you do not already have one, talk to your doctor about developing a personalized "Asthma Action Plan." [NOTE: A pneumococcal vaccine and yearly flu shot (every fall) are recommended. Ask your doctor about this.] Get Prompt Medical Attention if any of the following occur: Increased wheezing or shortness of breath Need to use your inhalers more often than usual without relief Fever of 100.4F (38C) or higher, or as directed by your healthcare provider Coughing up lots of dark-colored or bloody sputum (mucus) Chest pain with each breath You do not start to improve within 24 hours Call 911 If Any Of The Following Occur : Trouble walking or talking because of shortness of breath If you use a peak flow meter andyou are still in the red zone (less than 50 percent) 15 minutes after using inhaler medication Lips or fingernails turning huertas or blue You have been given the following additional information: Asthma, Acute (Adult) (Electronically signed by Nohemi Mcqueen P.A.-C 04/16/2017 20:17)
--- NOTE | 2017-04-16 22:17 | ED MED RECONCILIATION SUMMARY ---
Patient: MAYRA MENSAH Medication Reconciliation Report [facility] VisitID: [id number] [place] [address] 56y, M Registration Date/Time: 04/16/2017 Weight: 83.9 kg Height/Length: 72 in. BMI: 25.1 ALLERGIES: BLEACH The patient's Home Medications are listed below: THE FOLLOWING MEDICATIONS NEED TO BE RECONCILED: Albuterol Sulfate HFA Inhalation Atorvastatin Calcium Oral (80 mg) 1 tablet, daily Flomax Oral 0.4 mg, daily Gabapentin Oral (600 mg) 2 tablets, at bedtime OxyCODONE HCl Oral SEROquel Oral (300 mg) 1 tablet, daily Tordol 10mg po- not taking due to nausea Venlafaxine HCl ER Oral (150 mg) 170 mg , daily Vicodin 2 tabs every 4 hours- last dose 12 noon Zofran 4mg ODT prn - only has 2 or 3 left The source(s) of the original Home Medication information: Not obtained. The following Medications were given to the patient in the Emergency Department: IV NS IV Fluids bolus 0, then 1000 mL/hr, administered: 04/16/2017 6:24:00 PM Duoneb [Neb Tx] Neb TX 1 unit dose, administered: 04/16/2017 6:09:00 PM Ativan [IVP] IVP 1 mg, administered: 04/16/2017 6:09:00 PM SOLU-MEDROL [IVP] IVP 120 mg, administered: 04/16/2017 6:19:00 PM Ativan [IVP] IVP 1 mg, administered: 04/16/2017 6:52:00 PM IV NS IV Fluids bolus 0, then 1000 mL/hr, administered: 04/16/2017 7:15:00 PM The following Medications were prescribed to the patient: Medrol Dosepak: take according to package directions. Dispense one (1) dosepak. No refills. Substitution is permissible. -- Nohemi Mcqueen P.A.-C
--- NOTE | 2017-04-16 22:17 | ED MAR SUMMARY ---
..... Medication Administration Record [facility] [address] [place] [address] Patient: MAYRA MENSAH Visit ID: [id number] 56y, M Weight: 83.9 kg Height/Length: 72 in BMI: 25.1 ALLERGIES: BLEACH Given 18:09 04/16/2017 Wicho Burns R.N. Medication Administered: DUONEB [NEB TX] (IPRATROPIUM-ALBUTEROL), Dose: 1 unit dose Neb TX. Medication Ordered: DuoNeb Neb Tx 1 unit dose (NOW). Given 18:09 04/16/2017 Wicho Burns R.N. Medication Administered: ATIVAN [IVP] (LORAZEPAM), Dose: 1 mg IVP over 2 minute(s), Site: #1 right AC. Medication Ordered: Ativan IV 1 mg (HIGH ALERT MEDICATION, NOW). Given 18:19 04/16/2017 Wicho Burns R.N. Medication Administered: SOLU-MEDROL [IVP] (METHYLPREDNISOLONE SODIUM SUCC), Dose: 120 mg IVP over 2 minute(s), Site: #1 right AC. Medication Ordered: Solu-MEDROL IV 120 mg (NOW). Start 18:24 04/16/2017 Wicho Burns R.N., Stop 19:14 04/16/2017 Wicho Burns R.N. Medication Administered: IV NS (SALINE), Dose: IV Fluids over 1 hour(s), Rate: 1000 mL/hr, Dispensed: 1000 mL bag, Site: #1 right AC. Medication Ordered: IV NS : initial bolus 1000 mL (1000 mL/hr), then 1000 mL/hr for X1 (NOW); Caleb. Given 18:52 04/16/2017 Wicho Burns R.N. Medication Administered: ATIVAN [IVP] (LORAZEPAM), Dose: 1 mg IVP over 2 minute(s), Site: #1 right AC. Medication Ordered: Ativan IV 1 mg (HIGH ALERT MEDICATION, NOW). Start 19:15 04/16/2017 Wicho Burns R.N. Medication Administered: IV NS (SALINE), Dose: IV Fluids over 1 hour(s), Rate: 1000 mL/hr, Dispensed: 1000 mL bag, Site: #1 right AC. Medication Ordered: IV NS : initial bolus 1000 mL (1000 mL/hr), then 1000 mL/hr for X1 (NOW); Caleb.
== END 2017-04-16 19:40 | disposition home or self-care (01) ==
LOC: ED SRH 17:41
DX: J45.41 Moderate persistent asthma with (acute) exacerbation (principal); E78.00 Pure hypercholesterolemia, unspecified; E78.5 Hyperlipidemia, unspecified; I10 Essential (primary) hypertension; Z79.899 Other long term (current) drug therapy; Z91.09 Other allergy status, other than to drugs and biological substances; Z98.890 Other specified postprocedural states; Z72.0 Tobacco use
CPT/HCPCS: 90004; 90100; 91556; 95059